=== PATIENT | female | born 1935 | race Caucasian/White ===

== ENCOUNTER 2016-10-23 18:42 | Observation (INO) ==
[2016-10-23] MEDS ORDERED: Ondansetron 4 MG/2 ML VIAL IVP ONE (19:13)
[2016-10-23] MEDS ORDERED: 0.9 % Sodium Chloride 500 ML IVC ONE (19:14)
--- NOTE | 2016-10-23 19:28 | Emergency Department Note ---
Disposition Clinical Impression: Dehydration, Elevated alkaline phosphatase level, Colitis Disposition: Admitted As Inpatient Condition: Fair Referrals: Unassigned,Provider [Non-Partnered Physician] - Forms: ED Satisfaction Letter Time of Disposition: 21:52 Nausea/Vomiting/Diarrhea HPI - General Chief complaint: ED Nausea/Vomiting/Diarrhea Stated complaint: Nausea Time Seen by Provider: 10/23/16 18:58 Source: EMS Mode of arrival: EMS Limitations: no limitations Nursing Notes Reviewed: Yes Vital Signs Reviewed: Yes - History of Present Illness HPI Narrative: Patient presents to the ED with the chief complaint of nausea. Patient states that she has had gradually increasing nausea over the last 4 weeks. She initially had accompanying cough and congestion. She saw her primary care physician and was diagnosed with an upper respiratory infection and given an antibiotic. 6. Nausea continued, as her other symptoms resolved. She saw her primary care physician again and was given Zofran for nausea. She states that it has been progressively worse over the last week. Tonight she became so nauseated that she just could not take it anymore and called EMS. She has a history of mitral valve replacement with a prosthetic valve. She is on Coumadin. Has been compliant with all her medications. She denies any fever, chills, chest pain, difficulty breathing, melena, hematochezia. She states that she feels like she needs to vomit but she cannot and states that she feels like she needs to have a bowel movement, but she cannot. No rash. - Related Data Home Medications Medication Instructions Recorded Confirmed Indacaterol Maleate [Arcapta 1 cap PO DAILY 02/01/16 08/12/16 Neohaler] Tiotropium [Spiriva] 2 cap PO DAILY 02/01/16 08/12/16 Venlafaxine HCl [Effexor Xr] 75 mg PO DAILY 02/01/16 08/12/16 Levothyroxine [Synthroid] 75 mcg PO 0630 02/02/16 08/12/16 Potassium Chloride 10 meq PO BID 02/02/16 08/12/16 Fluticasone Propionate [Flovent 100 mcg IH DAILY 03/11/16 08/12/16 Diskus] Atorvastatin Calcium [Lipitor] 20 mg PO DAILY 08/12/16 08/12/16 Esomeprazole Magnesium [Nexium] 40 mg PO DAILY 08/12/16 08/12/16 Multivitamin/Iron/Folic Acid 1 each PO DAILY 08/12/16 08/12/16 [Centrum Complete Multivit Tab] Vit D3/Folic Acid/B2/B6/B12 4,000 units PO DAILY 08/12/16 08/12/16 [Folgard Tablet] Warfarin [Coumadin] 5 mg PO 1800 08/12/16 08/12/16 Previous Rx's Medication Instructions Recorded Furosemide [Lasix] 40 mg PO DAILY 30 Days 02/04/16 Metoprolol [Lopressor] 50 mg PO BID #60 tablet 03/15/16 Allergies Allergy/AdvReac Type Severity Reaction Status Date / Time niacin AdvReac Unconscious Verified 08/12/16 14:18 All systems ED: reviewed and negative except as stated. Gastrointestinal: Reports: nausea, constipation Past Medical History - Past Medical History Attestation: Yes The following information was validated with the patient. Source: patient Medical history: Reports: arthritis, asthma, atrial fibrillation, cardiomyopathy , CHF, COPD, GERD, hyperlipidemia, hypertension, thyroid disease, valvular heart disease, other Surgical history: Reports: cholecystectomy, hysterectomy, orthopedic, other, other Psychiatric history: Reports: no psych history - Social History Smoking Status: Never smoker Smokeless Tobacco Status: No Alcohol use: Reports: none Drug use: Reports: none Physical Exam - General Limitations: no limitations General appearance: alert, other (Appears ill but nontoxic) - Head Head exam: atraumatic, normocephalic, normal inspection - Eye Eye exam: Present: normal appearance, PERRL, EOMI - ENT ENT exam: mucous membranes dry (Crack lips, tacky) - Neck Neck exam: Present: normal inspection, full ROM, trachea midline - Chest Chest inspection: Present: normal inspection, symmetric chest wall rise - Respiratory Respiratory exam: Present: normal lung sounds bilaterally - Cardiovascular Cardiovascular exam: Present: regular rate, irregular rhythm, systolic murmur - Abdominal Exam Abdominal exam: Present: soft, distention. Absent: guarding, rebound - Rectal Exam Rectal exam: Present: deferred (Patient states that she needs to have a bowel movement right now. We will collect Hemoccult) Course - Reevaluation(s) Reevaluation #1: Lab work is back. Elevated alkaline phosphatase and white blood count to count. Renal function will not allow for IV contrast, so we will CT abd/pelvis noncontrast. Reevaluation #2: CT showing some colonic inflammation. Together with the elevated alkaline phosphatase. This is concerning for malignancy. Recommending colonoscopy. Patient also has acute renal insufficiency. Will admit the patient to the hospital service for further workup. Vital Signs Temperature 98 F 10/23/16 18:50 Pulse Rate 97 10/23/16 18:50 Respiratory Rate 18 10/23/16 18:50 Blood Pressure 157/87 10/23/16 18:50 O2 Sat by Pulse Oximetry 97 10/23/16 18:50 Temperature 98 F 10/23/16 18:50 Pulse Rate 95 10/23/16 21:50 Respiratory Rate 16 10/23/16 21:50 Blood Pressure 157/98 10/23/16 21:50 O2 Sat by Pulse Oximetry 95 10/23/16 21:50 Oxygen Delivery Oxygen Delivery Room Air Nausea/Vomiting/Diarrhea - Lab Data Result diagrams: 10/23/16 20:14 10/23/16 20:14 Lab Results 10/23/16 10/23/16 10/23/16 Range/Units 19:23 20:14 20:14 WBC 16.1 H (4.3-11.1) K/mcL RBC 4.47 (3.82-4.97) M/mcL Hgb 12.1 (11.5-15.4) g/dL Hct 38.8 (35.3-44.9) % MCV 86.8 (83.0-100.0) fL MCH 27.1 L (28.0-33.3) pg MCHC 31.2 L (31.6-35.5) g/dL RDW 21.2 H (11.5-14.5) % Plt Count 152 (140-400) K/mcL MPV 12.3 (9.4-12.4) fL Immature Gran % 0.6 (0-4) % Seg Neutrophils % 88.5 % Lymphocytes % 4.5 % Monocytes % 6.1 % Eosinophils % 0.1 % Basophils % 0.2 % Neutrophils # 14.3 H (1.6-8.9) K/mcL Lymphocytes # 0.7 (0.6-4.6) K/mcL Monocytes # 1.0 (0.0-1.3) K/mcL Eosinophils # 0.0 (0.0-0.6) K/mcL Basophils # 0.0 (0.0-0.2) K/mcL PT (9.4-12.1) Seconds INR Sodium 139 (136-145) mEq/L Potassium 4.5 (3.5-4.5) mEq/L Chloride 97 L (98-109) mEq/L Carbon Dioxide 25 (19-29) mEq/L BUN 23 H (7-20) mg/dL Creatinine 1.61 H (0.57-1.11) mg/dL Est GFR ( Amer) 37 L (> 60) Est GFR (Non-Af Amer) 31 L (> 60) BUN/Creatinine Ratio 14 (6-26) Glucose 148 H (70-99) mg/dL Calculated Osmolality 294 (280-300) Calcium 9.9 (8.6-10.8) mg/dL Total Bilirubin 1.3 H (0.2-1.2) mg/dL AST 55 H (5-34) Units/L ALT 41 (0-55) Units/L Alkaline Phosphatase 185 H (38-126) Units/L Troponin I (0-0.03) ng/mL Serum Total Protein 7.3 (6.0-8.3) g/dL Albumin 4.2 (3.5-5.0) g/dL Globulin 3.1 (2.4-3.5) g/dL Albumin/Globulin Ratio 1.4 (1.1-2.2) Lipase 32 (8-78) Units/L Urine Color (Yellow) Urine Clarity (Clear) Urine pH (5.0-8.0) pH Units Ur Specific Crosby (1.010-1.025) Urine Protein (Neg-Trace) mg/dL Urine Glucose (UA) (Normal) mg/dL Urine Ketones (Negative) mg/dL Urine Blood (Negative) Urine Nitrite (Negative) Urine Bilirubin (Negative) Urine Urobilinogen (Normal) mg/dL Ur Leukocyte Esterase (Negative) Urine Microscopic RBC (0-3) per hpf Urine Microscopic WBC (0-3) per hpf Ur Squamous Epith Cells (None-Few) per lpf Urine Bacteria (None-Few) per hpf Hyaline Casts (None-Few) per lpf Ur Culture Indicated? (NO) Stool Occult Blood Negative (Negative) 10/23/16 10/23/16 10/23/16 Range/Units 20:14 20:14 21:46 WBC (4.3-11.1) K/mcL RBC (3.82-4.97) M/mcL Hgb (11.5-15.4) g/dL Hct (35.3-44.9) % MCV (83.0-100.0) fL MCH (28.0-33.3) pg MCHC (31.6-35.5) g/dL RDW (11.5-14.5) % Plt Count (140-400) K/mcL MPV (9.4-12.4) fL Immature Gran % (0-4) % Seg Neutrophils % % Lymphocytes % % Monocytes % % Eosinophils % % Basophils % % Neutrophils # (1.6-8.9) K/mcL Lymphocytes # (0.6-4.6) K/mcL Monocytes # (0.0-1.3) K/mcL Eosinophils # (0.0-0.6) K/mcL Basophils # (0.0-0.2) K/mcL PT 25.0 H (9.4-12.1) Seconds INR 2.3 Sodium (136-145) mEq/L Potassium (3.5-4.5) mEq/L Chloride (98-109) mEq/L Carbon Dioxide (19-29) mEq/L BUN (7-20) mg/dL Creatinine (0.57-1.11) mg/dL Est GFR ( Amer) (> 60) Est GFR (Non-Af Amer) (> 60) BUN/Creatinine Ratio (6-26) Glucose (70-99) mg/dL Calculated Osmolality (280-300) Calcium (8.6-10.8) mg/dL Total Bilirubin (0.2-1.2) mg/dL AST (5-34) Units/L ALT (0-55) Units/L Alkaline Phosphatase (38-126) Units/L Troponin I 0.01 (0-0.03) ng/mL Serum Total Protein (6.0-8.3) g/dL Albumin (3.5-5.0) g/dL Globulin (2.4-3.5) g/dL Albumin/Globulin Ratio (1.1-2.2) Lipase (8-78) Units/L Urine Color Yellow (Yellow) Urine Clarity Cloudy A (Clear) Urine pH 6.0 (5.0-8.0) pH Units Ur Specific Crosby 1.010 (1.010-1.025) Urine Protein Negative (Neg-Trace) mg/dL Urine Glucose (UA) Normal (Normal) mg/dL Urine Ketones Negative (Negative) mg/dL Urine Blood Negative (Negative) Urine Nitrite Negative (Negative) Urine Bilirubin Negative (Negative) Urine Urobilinogen Normal (Normal) mg/dL Ur Leukocyte Esterase Large H (Negative) Urine Microscopic RBC 0-3 (0-3) per hpf Urine Microscopic WBC 30-50 H (0-3) per hpf Ur Squamous Epith Cells Many H (None-Few) per lpf Urine Bacteria None Seen (None-Few) per hpf Hyaline Casts None Seen (None-Few) per lpf Ur Culture Indicated? YES A (NO) Stool Occult Blood (Negative) Attestation Statement - Attestation Attestation: I, Stepan Llamas MD, personally performed a history and physical exam of the patient and discussed their management with the resident. I reviewed the resident's note and agree with the documented findings, medical decision making , and plan of care. 81-year-old female presents to the emergency department with a complaint of nausea which started about 4-6 weeks ago and seems to just be getting gradually worse all the time. She denies any pain. Her abdomen does feel a little bloated and swollen. No vomiting or diarrhea. No melena, hematemesis, or hematochezia. No fever. No urinary symptoms. Decreased oral intake due to the nausea. Some generalized weakness. She has been seen by her PCP and states that she had a scan of her liver about 10 days ago which did not show anything. She has had some problems with her liver enzymes being elevated in the past. On examination patient is a well-developed well-nourished elderly female in no acute distress. She is alert and oriented 3. There is no cyanosis or diaphoresis. Breath sounds are clear and equal bilaterally. Heart regular rate and rhythm. Abdomen is soft and nontender with normal bowel sounds. Labs reviewed. WBC 16 with 88% segs. Creatinine 1.61 which is increased from baseline. Total bilirubin 1.3. Elevated AST and alkaline phosphatase. CT of the abdomen and pelvis without contrast obtained and shows a focal area of circumferential wall thickening of the descending colon with some surrounding stranding concerning for a focal colitis or possible malignancy. The hospitalist, Dr. Carey, was consulted and accepted admission of the patient.
[2016-10-23 20:18] LABS: Basophils % 0.2 %; Eosinophils % 0.1 %; Hematocrit 38.8 % (35.3-44.9); Hemoglobin 12.1 g/dL (11.5-15.4); Immature Granulocytes % 0.6 % (0-4); Lymphocytes # 0.7 K/mcL (0.6-4.6); Lymphocytes % 4.5 %; Mean Corpuscular HGB Conc 31.2 g/dL (31.6-35.5); Mean Corpuscular Hemoglobin 27.1 pg (28.0-33.3); Mean Corpuscular Volume 86.8 fL (83.0-100.0); Mean Platelet Volume 12.3 fL (9.4-12.4); Monocytes % 6.1 %; Neutrophils # 14.3 K/mcL (1.6-8.9); Platelet Count 152 K/mcL (140-400); Red Blood Count 4.47 M/mcL (3.82-4.97); Red Cell Distribution Width 21.2 % (11.5-14.5); Segmented Neutrophils % 88.5 %
[2016-10-23 20:23] LABS: INR 2.3
[2016-10-23 20:32] LABS: Albumin 4.2 g/dL (3.5-5.0); Albumin/Globulin Ratio 1.4 (1.1-2.2); Bilirubin,Total 1.3 mg/dL (0.2-1.2); Calcium 9.9 mg/dL (8.6-10.8); Globulin 3.1 g/dL (2.4-3.5); Potassium 4.5 mEq/L (3.5-4.5); Total Protein 7.3 g/dL (6.0-8.3)
[2016-10-23 22:06] LABS: Bilirubin,Urine Negative (Negative); Blood,Urine Negative (Negative); Clarity,Urine Cloudy (Clear); Color,Urine Yellow (Yellow); Glucose,Urine (UA) Normal (Normal); Ketones,Urine Negative (Negative); Leukocyte Esterase,Urine Large (Negative); Nitrite,Urine Negative (Negative); Protein,Urine Negative (Neg-Trace); Urobilinogen,Urine Normal (Normal)
[2016-10-23 22:08] LABS: Bacteria,Urine None Seen per hpf (None-Few); Hyaline Casts,Urine None Seen per lpf (None-Few); RBC,Urine 0-3 per hpf (0-3); Squamous Epithelial Cell,Urine Many per lpf (None-Few); WBC,Urine 30-50 per hpf (0-3)
[2016-10-24] MEDS ORDERED: *HR* LORazepam 0.5 MG TABLET PO PRN (01:05)
[2016-10-24] MEDS ORDERED: *HR* LORazepam 2 MG/ML VIAL IVP STA (01:05)
[2016-10-24] MEDS ORDERED: Benzonatate 100 MG CAPSULE PO PRN (01:05)
--- NOTE | 2016-10-24 01:18 | Internal Med History&Physical ---
Date of Encounter: 10/24/16 Time of Encounter: 01:00 Assessment and Plan (1) Intractable nausea and vomiting Current visit: Yes Status: Acute . Qualifiers: Vomiting type: cyclical vomiting Qualified Code(s): G43.A1 - Cyclical vomiting, intractable (2) Upper respiratory infection with cough and congestion Current visit: Yes Status: Acute . (3) Acute generalized abdominal pain Current visit: Yes Status: Acute . (4) EDIL (acute kidney injury) Current visit: Yes Status: Acute . (5) Transaminitis Current visit: Yes Status: Acute . (6) UTI (urinary tract infection) Current visit: Yes Status: Acute . Qualifiers: Urinary tract infection type: acute cystitis Hematuria presence: without hematuria Qualified Code(s): N30.00 - Acute cystitis without hematuria (7) Ischemic colitis, enteritis, or enterocolitis Current visit: Yes Status: Acute . (8) Paroxysmal atrial fibrillation Current visit: Yes Status: Chronic . (9) Chronic anticoagulation Current visit: Yes Status: Chronic . (10) Dyslipidemia Current visit: Yes Status: Chronic . (11) Systemic inflammatory response syndrome Current visit: Yes Status: Acute . (12) Hypertension Current visit: Yes Status: Chronic . Qualifiers: Hypertension type: essential hypertension Qualified Code(s): I10 - Essential (primary) hypertension (13) Chronic diastolic (congestive) heart failure Current visit: Yes Status: Chronic . (14) Hypothyroidism Current visit: Yes Status: Chronic . Qualifiers: Hypothyroidism type: unspecified Qualified Code(s): E03.9 - Hypothyroidism , unspecified (15) Thrombus of left atrial appendage Current visit: Yes Status: Chronic . (16) Sepsis Current visit: Yes Status: Acute . Qualifiers: Sepsis type: sepsis due to unspecified organism Qualified Code(s): A41.9 - Sepsis, unspecified organism Internal Medicine - H&P: HPI Chief complaint: Nausea vomiting diarrhea and abdominal pain Admitted From: Emergency Dept Plans for Post Hospital Care: Home History of present illness: Ms. Lee is a 81 year old female with significant medical history of valvular heart disease/prosthetic mitral valve replacement, chronic paroxysmal atrial fibrillation/AV albert ablation for AVNRT, CAD/AMI/diastCHF, COPD, RAD/ asthma, hypertension, dyslipidemia, GERD, chronic anticoagulation, osteoarthritis, osteoporosis, hypothyroidism, nonsmoker. Patient is admitted to [facility] via the emergency department when she presented by EMS services from home with complaints of intractable nausea / vomiting with intermittent abdominal pain and diarrheal/loose stools. She denies hematemesis melena or bright red blood per rectum hemoptysis epistaxis. Symptoms have been progressive for approximately 6 weeks worse in the last 3-4 weeks. This followed an initial episode of upper respiratory tract infection with cough and postnasal drainage and head/chest congestion. No PCP treated her with a course of antibiotic therapy for a URI diagnosis. Nausea she however continued as her other symptoms seem to resolve. Because of this she saw her PCP again and was placed on oral Zofran. In spite of this treatment addition her symptoms progressively worsened over the last week and were still within the last few days. Because of this she was unable to maintain stable predictable oral intakes of solids or liquids. For the most part compliant with her home medications as prescribed including her Coumadin. She denied any overt feverishness or chills or sweats chest pain or difficulty breathing orthopnea PND edema. At the day of presentation to the ED continues to feel nauseated with a feeling of need to vomit but cannot as well as a feeling of need to have a bowel movement but cannot. Findings in the ED: Vital signs. Afebrile. WBC 16.1 hemoglobin 12.1 platelets 152,000. RDW 21.2. Differential shows increase in neutrophils. Comprehensive metabolic panel normal except chloride 97. BUN 23 creatinine 1.61. GFR 31. Glucose 148. Osmolality 294. Total bilirubin 1.3. AST 55. Alkaline phosphatase 185. Lipase 32. PTT 25 INR 2.3. Troponin 0.01. Urinalysis shows large leukocyte esterase. 5 RBC. 50 WBC. Epithelial cells, many. CT abdomen and pelvis demonstrated circumferential wall thickening involving a segment of the descending colon. This may be due to colitis was concerning for malignancy. Follow-up recommended. Findings suggestive of diffuse periportal edema, nonspecific although hepatitis may be a consideration. Sigmoid diverticulosis without diverticulitis. No evidence of bowel obstruction. Small hiatal hernia. No free air or free fluid or abscess identified. No acute bony abnormalities. Preliminary impressions suggest sepsis/SIRS present at admission, multifactorial. Radiographic findings suggest evidence for distal colonic enteritis-colitis unspecified. Malignancy however is not ruled out. Further assessment will be required. Urinalysis/urinary sediment suggestive of UTI. She has a prominent history of chronic recurrent infections due to problematic bladder syndrome with alternating urinary retention and urge incontinence. Metabolic and acid-base deficits are noted. AK I/CK D stage III noted. The patient is at risk for further acute clinical decline and morbidity given her advanced age, presenting chief complaints/findings and comorbid conditions. Workup and treatment progress comprehensively. Plan of care has been discussed. Questions addressed. Cumulative laboratory and radiographic database was reviewed and considered. Consultative opinions will be sought as clinical circumstances justify. Given the patient's presenting concerns, past medical history, clinical findings and symptoms, she is admitted at this time to undergo further evaluation and disposition. Hospital course will be dependent upon clinical findings, treatment response and potential consultative interventions. Orders were written as per the computerized physician order intravenous system. Condition serious. Prognosis guarded. CODE STATUS as per patient consideration. Past Med Surg Social Fam HX - Past Medical History Source: old records reviewed Medical history: arthritis, asthma, atrial fibrillation, cardiomyopathy, CHF, COPD, coronary artery disease, GERD, hyperlipidemia, hypertension, kidney stones , myocardial infarction, osteoporosis, renal disease, thyroid disease, valvular heart disease, other Psychiatric history: anxiety, depression - Past Surgical History Surgical History: breast surgery, cholecystectomy, hysterectomy, orthopedic, other, other (Thorascopic maze procedure with extended ablation. Intraoperative mapping. Ligation of left atrial appendage. Indication atrial fibrillation. EP study. Ablation of AVNRT performed.) - Social History Smoking Status: Never smoker Smokeless Tobacco Status: No Alcohol use: none Drug use: none Occupational status: retired Current living situation: Home, With Family Activity Level: Independent ambulation, Mostly sedentary Recent Out of Country Travel Within the Last 8 Weeks: No Exposure or Possible Exposure to Illness During Travel: No - Family History Mother Living Status: Hx Family Cardiac Disorders: Yes Hx Family Respiratory Disorders: No Hx Family Cancer: Yes (Breast) Hx Family GI Disorders: No Hx Family Endocrine Disorder: No Hx Family Neuromuscular Disorders: No Hx Family Neurologic Disorders: No Hx Family HEENT Disorders: No Hx Family Autoimmune Disorders: No Father Living Status: Hx Family Cardiac Disorders: Yes (self) Hx Family Respiratory Disorders: Yes (self) Hx Family Cancer: Yes (mother,brother,aunt) Hx Family GI Disorders: No Hx Family Endocrine Disorder: No Hx Family Neuromuscular Disorders: No Hx Family Neurologic Disorders: Yes (grandparents) Hx Family HEENT Disorders: No Hx Family Autoimmune Disorders: No Internal Medicine - H&P: Meds Indacaterol Maleate [Arcapta Neohaler] 75 mcg IH DAILY 02/01/16 [History] Tiotropium [Spiriva] 18 mcg IH DAILY 02/01/16 [History] Venlafaxine HCl [Effexor Xr] 75 mg PO DAILY 02/01/16 [History] Potassium Chloride 20 meq PO BID 02/02/16 [History] Furosemide [Lasix] 40 mg PO DAILY 30 Days 02/04/16 [Rx] Fluticasone Propionate [Flovent Diskus] 1 puff IH DAILY 03/11/16 [History] Atorvastatin Calcium [Lipitor] 20 mg PO HS 08/12/16 [History] Esomeprazole Magnesium [Nexium] 40 mg PO DAILY 08/12/16 [History] Multivitamin/Iron/Folic Acid [Centrum Complete Multivit Tab] 1 each PO DAILY [History] Aspirin Enteric Coated [Aspirin EC] 81 mg PO DAILY 10/23/16 [History] Cholecalciferol (Vitamin D3) [Vitamin D3] 4,000 unit PO DAILY 10/23/16 [History] Levothyroxine Sodium 100 mcg PO QAM 10/23/16 [History] Metoprolol [Lopressor] 100 mg PO BID 10/23/16 [History] Ondansetron [Zofran ODT] 8 mg SL Q8H PRN 10/23/16 [History] Warfarin [Coumadin] 4 mg PO 1800 10/23/16 [History] Allergies niacin Adverse Reaction (Verified 08/12/16 14:18) Unconscious All Systems PM: A 10-system review of systems was performed and is negative for pertinent findings except as documented above in the HPI. - Constitutional Constitutional: as per HPI, fatigue, malaise, other, no chills, no fever(s), no night sweats - EENT Eyes: as per HPI, no change in vision, no discharge, no pain, no photophobia Ears: as per HPI, no ear discharge, no ear pain, no tinnitus Nose, mouth and throat: as per HPI, nasal congestion, post-nasal drip, other, no dysphagia, no epistaxis, no nasal discharge, no neck pain, no sore throat - Cardiovascular Cardiovascular ROS IM: as per HPI, lightheadedness, other, no chest pain, no diaphoresis, no dyspnea, no palpitations, no syncope - Respiratory Respiratory: as per HPI, cough, chest congestion, other, no dyspnea, no hemoptysis, no wheezing, no excessive phlegm production - Gastrointestinal Gastrointestinal: as per HPI, abdominal pain, bloating, change in bowel habits, change in stool character, cramping, diarrhea, early satiety, loose stools, nausea, vomiting, other, no coffee ground emesis, no fecal incontinence, no hematemesis, no hematochezia, no melena - Genitourinary Genitourinary: as per HPI, other, no change in urinary stream, no dysuria, no flank pain, no hematuria - Musculoskeletal Musculoskeletal ROS IM: as per HPI, no numbness, no tingling - Integumentary Integumentary IM: as per HPI, no rash, no unusual bruising - Neurological Neurological ROS: as per HPI, no confusion, no convulsions, no focal weakness, no numbness, no tingling, no tremor(s) - Psychiatric Psychiatric: as per HPI - Endocrine Endocrine IM: as per HPI - Hematologic/Lymphatic Hematologic/Lymphatic: as per HPI, no easy bruising - Allergic/Immunologic Allergic/Immunologic: as per HPI - Constitutional Vitals: Temp Pulse Resp BP Pulse Ox 97.7 F 114 18 140/98 94 10/24/16 00:35 10/24/16 00:35 10/24/16 00:35 10/24/16 00:35 10/24/16 00:35 Vital Signs Temp Pulse Resp BP Pulse Ox 10/24/16 00:35 97.7 F 114 18 140/98 94 10/23/16 22:47 16 153/92 10/23/16 21:50 95 16 157/98 95 10/23/16 20:25 104 16 144/79 95 10/23/16 19:29 97 18 157/87 97 10/23/16 18:50 98 F 97 18 157/87 97 Intake and Output 10/23/16 10/23/16 10/24/16 15:59 23:59 07:59 Intake Total 500 / 500 Balance 500 / 500 Intake: IV Fluids 500 / 500 0.9 % Sodium Chloride 500 500 / 500 ML @ 1875 mls/hr IVC . Q16M ONE Rx#:[id number] Other: Stool Characteristics Normal for Patient Stool Color Brown Weight 63.957 kg 64 kg Patient Weight 10/24/16 23:59 Weight 64 kg General appearance: Present: mild distress, A&O X 3, answers questions appropriately - Head Head exam: Present: atraumatic, normocephalic - Eye Eye exam: Present: EOMI, PERRL, conjuntiva pink, sclera anicteric Pupils: Present: normal accommodation, PERRL - ENT ENT exam: Present: mucous membranes dry, normal external ear exam, normal oropharynx - Neck Neck exam general surgery: Present: supple, trachea midline. Absent: lymphadenopathy - Respiratory Respiratory exam: Present: decreased breath sounds. Absent: accessory muscle use, CTAB, rales, rhonchi, stridor, wheezes - Cardiovascular Cardiovascular exam: Present: distant heart sounds, irregular rhythm, +S1, +S2, tachycardia. Absent: diastolic murmur, gallop, rubs, systolic murmur - GI/Abdominal GI/Abdominal exam: Present: distended, normal bowel sounds, soft, tenderness, no peritoneal signs. Absent: guarding, rebound - Extremities Exam Extremities exam: Present: warm, radial pulses palpable and symetrical. Absent : calf tenderness, cyanotic, pedal edema - Neurological Exam Neurological exam: Present: alert, altered, CN II-XII intact, oriented X3, no focal deficits. Absent: pronater drift, facial droop, speech deficit - Psychiatric Psychiatric exam: Present: normal affect, normal mood - Skin Skin exam: Present: dry, intact, warm. Absent: petechiae, rash, urticaria, vesicles Internal Med - H&P Results - Labs CBC & Chem 7: 10/23/16 20:14 10/23/16 20:14 Labs: Short CBC 10/23/16 Range/Units 20:14 WBC 16.1 H (4.3-11.1) K/mcL Hgb 12.1 (11.5-15.4) g/dL Hct 38.8 (35.3-44.9) % Plt Count 152 (140-400) K/mcL Neutrophils # 14.3 H (1.6-8.9) K/mcL BMP 10/23/16 Range/Units 20:14 Sodium 139 (136-145) mEq/L Potassium 4.5 (3.5-4.5) mEq/L Chloride 97 L (98-109) mEq/L Carbon Dioxide 25 (19-29) mEq/L BUN 23 H (7-20) mg/dL Creatinine 1.61 H (0.57-1.11) mg/dL Glucose 148 H (70-99) mg/dL Calcium 9.9 (8.6-10.8) mg/dL Cardiac Enzymes 10/23/16 Range/Units 20:14 Troponin I 0.01 (0-0.03) ng/mL Liver Function 10/23/16 Range/Units 20:14 Total Bilirubin 1.3 H (0.2-1.2) mg/dL AST 55 H (5-34) Units/L ALT 41 (0-55) Units/L Alkaline Phosphatase 185 H (38-126) Units/L Albumin 4.2 (3.5-5.0) g/dL Urine 10/23/16 Range/Units 21:46 Urine Color Yellow (Yellow) Urine Clarity Cloudy A (Clear) Urine pH 6.0 (5.0-8.0) pH Units Ur Specific [place] 1.010 (1.010-1.025) Urine Protein Negative (Neg-Trace) mg/dL Urine Glucose (UA) Normal (Normal) mg/dL Abnormal lab results WBC 16.1 K/mcL (4.3-11.1) H 10/23/16 20:14 MCH 27.1 pg (28.0-33.3) L 10/23/16 20:14 MCHC 31.2 g/dL (31.6-35.5) L 10/23/16 20:14 RDW 21.2 % (11.5-14.5) H 10/23/16 20:14 Neutrophils # 14.3 K/mcL (1.6-8.9) H 10/23/16 20:14 PT 25.0 Seconds (9.4-12.1) H 10/23/16 20:14 Chloride 97 mEq/L (98-109) L 10/23/16 20:14 BUN 23 mg/dL (7-20) H 10/23/16 20:14 Creatinine 1.61 mg/dL (0.57-1.11) H 10/23/16 20:14 Est GFR ( Amer) 37 (> 60) L 10/23/16 20:14 Est GFR (Non-Af Amer) 31 (> 60) L 10/23/16 20:14 Glucose 148 mg/dL (70-99) H 10/23/16 20:14 Total Bilirubin 1.3 mg/dL (0.2-1.2) H 10/23/16 20:14 AST 55 Units/L (5-34) H 10/23/16 20:14 Alkaline Phosphatase 185 Units/L (38-126) H 10/23/16 20:14 Urine Clarity Cloudy (Clear) A 10/23/16 21:46 Ur Leukocyte Esterase Large (Negative) H 10/23/16 21:46 Urine Microscopic WBC 30-50 per hpf (0-3) H 10/23/16 21:46 Ur Squamous Epith Cells Many per lpf (None-Few) H 10/23/16 21:46 Ur Culture Indicated? YES (NO) A 10/23/16 21:46 Laboratory Results WBC 16.1 K/mcL (4.3-11.1) H 10/23/16 20:14 RBC 4.47 M/mcL (3.82-4.97) 10/23/16 20:14 Hgb 12.1 g/dL (11.5-15.4) 10/23/16 20:14 Hct 38.8 % (35.3-44.9) 10/23/16 20:14 MCV 86.8 fL (83.0-100.0) 10/23/16 20:14 MCH 27.1 pg (28.0-33.3) L 10/23/16 20:14 MCHC 31.2 g/dL (31.6-35.5) L 10/23/16 20:14 RDW 21.2 % (11.5-14.5) H 10/23/16 20:14 Plt Count 152 K/mcL (140-400) 10/23/16 20:14 MPV 12.3 fL (9.4-12.4) 10/23/16 20:14 Immature Gran % 0.6 % (0-4) 10/23/16 20:14 Seg Neutrophils % 88.5 % 10/23/16 20:14 Lymphocytes % 4.5 % 10/23/16 20:14 Monocytes % 6.1 % 10/23/16 20:14 Eosinophils % 0.1 % 10/23/16 20:14 Basophils % 0.2 % 10/23/16 20:14 Neutrophils # 14.3 K/mcL (1.6-8.9) H 10/23/16 20:14 Lymphocytes # 0.7 K/mcL (0.6-4.6) 10/23/16 20:14 Monocytes # 1.0 K/mcL (0.0-1.3) 10/23/16 20:14 Eosinophils # 0.0 K/mcL (0.0-0.6) 10/23/16 20:14 Basophils # 0.0 K/mcL (0.0-0.2) 10/23/16 20:14 PT 25.0 Seconds (9.4-12.1) H 10/23/16 20:14 INR 2.3 10/23/16 20:14 Sodium 139 mEq/L (136-145) 10/23/16 20:14 Potassium 4.5 mEq/L (3.5-4.5) 10/23/16 20:14 Chloride 97 mEq/L (98-109) L 10/23/16 20:14 Carbon Dioxide 25 mEq/L (19-29) 10/23/16 20:14 BUN 23 mg/dL (7-20) H 10/23/16 20:14 Creatinine 1.61 mg/dL (0.57-1.11) H 10/23/16 20:14 Est GFR ( Amer) 37 (> 60) L 10/23/16 20:14 Est GFR (Non-Af Amer) 31 (> 60) L 10/23/16 20:14 BUN/Creatinine Ratio 14 (6-26) 10/23/16 20:14 Glucose 148 mg/dL (70-99) H 10/23/16 20:14 Calculated Osmolality 294 (280-300) 10/23/16 20:14 Calcium 9.9 mg/dL (8.6-10.8) 10/23/16 20:14 Total Bilirubin 1.3 mg/dL (0.2-1.2) H 10/23/16 20:14 AST 55 Units/L (5-34) H 10/23/16 20:14 ALT 41 Units/L (0-55) 10/23/16 20:14 Alkaline Phosphatase 185 Units/L (38-126) H 10/23/16 20:14 Troponin I 0.01 ng/mL (0-0.03) 10/23/16 20:14 Serum Total Protein 7.3 g/dL (6.0-8.3) 10/23/16 20:14 Albumin 4.2 g/dL (3.5-5.0) 10/23/16 20:14 Globulin 3.1 g/dL (2.4-3.5) 10/23/16 20:14 Albumin/Globulin Ratio 1.4 (1.1-2.2) 10/23/16 20:14 Lipase 32 Units/L (8-78) 10/23/16 20:14 Urine Color Yellow (Yellow) 10/23/16 21:46 Urine Clarity Cloudy (Clear) A 10/23/16 21:46 Urine pH 6.0 pH Units (5.0-8.0) 10/23/16 21:46 Ur Specific [place] 1.010 (1.010-1.025) 10/23/16 21:46 Urine Protein Negative mg/dL (Neg-Trace) 10/23/16 21:46 Urine Glucose (UA) Normal mg/dL (Normal) 10/23/16 21:46 Urine Ketones Negative mg/dL (Negative) 10/23/16 21:46 Urine Blood Negative (Negative) 10/23/16 21:46 Urine Nitrite Negative (Negative) 10/23/16 21:46 Urine Bilirubin Negative (Negative) 10/23/16 21:46 Urine Urobilinogen Normal mg/dL (Normal) 10/23/16 21:46 Ur Leukocyte Esterase Large (Negative) H 10/23/16 21:46 Urine Microscopic RBC 0-3 per hpf (0-3) 10/23/16 21:46 Urine Microscopic WBC 30-50 per hpf (0-3) H 10/23/16 21:46 Ur Squamous Epith Cells Many per lpf (None-Few) H 10/23/16 21:46 Urine Bacteria None Seen per hpf (None-Few) 10/23/16 21:46 Hyaline Casts None Seen per lpf (None-Few) 10/23/16 21:46 Ur Culture Indicated? YES (NO) A 10/23/16 21:46 Stool Occult Blood Negative (Negative) 10/23/16 19:23 Impressions Abdomen/Pelvis CT 10/23/16 20:53 IMPRESSION: Circumferential wall thickening involving a segment of the descending colon which may be due to focal colitis but is concerning for malignancy. Follow-up to ensure resolution is needed. Consider colonoscopy. Findings suggestive of diffuse periportal edema, nonspecific although hepatitis is a primary consideration with the provided history. D/ / Ion Juárez MD / Ion Juárez MD Interpreting Provider: Ion Juárez MD
[2016-10-24] MEDS ORDERED: Albuterol 2.5 MG/3 ML NEBULIZER IH PRN (01:23)
[2016-10-24] MEDS: Melatonin 3 MG TABLET PO SCH ×2 (01:54→21:45)
[2016-10-24] MEDS: Ipratropium/Albuterol Neb 3 ML IH SCH ×4 (04:39→22:37)
[2016-10-24 05:30] LABS: VBG HCO3 32.5 mEq/L (21-27); VBG PH 7.43 pH Units (7.32-7.42)
[2016-10-24 05:39] LABS: Ionized Calcium 1.11 mmol/L (1.15-1.35)
[2016-10-24] MEDS ORDERED: 0.9 % Sodium Chloride 500 ML IVC ONE (05:40)
[2016-10-24] MEDS ORDERED: *HR* LORazepam 2 MG/ML VIAL IVP ONE (06:00)
[2016-10-24 06:21] LABS: Hemoglobin A1C 6.2 %
[2016-10-24] MEDS: MetroNIDAZOLE 500 MG/100 ML 500 MG/100 ML BAG IVPB SCH ×3 (07:43→23:46)
--- NOTE | 2016-10-24 07:59 | Electrocardiograph Report ---
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
[2016-10-24] MEDS: Metoprolol 100 MG TABLET PO SCH ×2 (09:12→21:45)
[2016-10-24] MEDS: Aspirin Enteric Coated 81 MG Tablet PO SCH (09:12)
[2016-10-24] MEDS: Venlafaxine XR (24 HR) 75 MG CAP.ER.24H PO SCH (09:12)
[2016-10-24] MEDS: Beclomethasone 80mcg MDI IH SCH ×2 (10:22→22:37)
[2016-10-24 10:54] LABS: Hepatitis A Antibody IgM Nonreactive (Nonreactive); Hepatitis B Core IgM Nonreactive (Nonreactive); Hepatitis B Surface Antigen Nonreactive (Nonreactive); Hepatitis C Virus Antibody Nonreactive (Nonreactive)
--- NOTE | 2016-10-24 11:35 | Internal Med Progress Note ---
<Michele Quezada - Last Filed: 10/24/16 14:30> Date of Encounter: 10/24/16 Time of Encounter: 08:00 - Assessment and plan (1) Colitis Current Visit: Yes Status: Acute Assessment and plan: Mrs. Lee presented with abdominal tenderness and nausea for several weeks. CT of the abdomen demonstrated descending colon colitis. Patient denies diarrhea, blood in her stools or mucousy stools. She has had a little bit of constipation which she has been using MiraLAX. - CT scan demonstrated colitis but there is also concerned that there may be malignancy and patient should undergo colonoscopy which can be completed with outpatient follow-up (gastroenterology )and therapy. Plan: -Continue IV Flagyl and Cipro with plans to switch to by mouth Flagyl at time of discharge. - Continue bowel regimen. - Clear liquids with transition diet. (2) Impetigo Current Visit: Yes Status: Acute Assessment and plan: Patient had recent lesion biopsy of the right cheek now demonstrate signs of infection. Plan: - Topical mupirocin 3 times a day. (3) Atrial fibrillation Current Visit: No Status: Acute Assessment and plan: History of atrial fibrillation. Plan: - Continue rate control at beta martha - Continue aspirin 81 mg by mouth daily Qualifiers: Atrial fibrillation type: persistent Qualified Code(s): I48.1 - Persistent atrial fibrillation (4) DVT prophylaxis Current Visit: No Status: Acute Assessment and plan: SCDs - Subjective Interval history: Mrs. Lee 81-year-old female has been seen the patient bedside this morning. She is awake alert and in no acute distress. She said that she had nausea which was severe for 3-6 weeks intensified yesterday prior to calling the squad. She has also had abdominal tenderness in her lower left and he will quadrant more so to touch. She has had a loss of appetite for several weeks but denies any vomiting diarrhea. She has had constipation is been using laxatives including MiraLAX at home. She had a spot of blood that she noticed while wiping earlier this week and follow up with her primary care provider. Currently she denies any nausea or vomiting, diarrhea or constipation. She feels pretty good. She actually has an appetite which he said his abnormal she says. Regarding the swelling on her right maxilla, she said she had a skin lesion removed earlier this week but has had increase in swelling and drainage.. - Constitutional Vitals: Temp Pulse Resp BP Pulse Ox 97.6 F 114 16 121/71 95 10/24/16 10:43 10/24/16 10:43 10/24/16 10:43 10/24/16 10:43 10/24/16 10:43 General appearance: Present: mild distress, A&O X 3, answers questions appropriately - Head Head exam: Present: atraumatic, normocephalic Additional comments: Patient has erythema and mild edema with yellow crusted lesion on the right cheek. - Eye Eye exam: Present: PERRL, conjuntiva pink, sclera anicteric Pupils: Present: PERRL - ENT ENT exam: Present: mucous membranes moist - Neck Neck exam general surgery: Present: supple, trachea midline. Absent: lymphadenopathy - Respiratory Respiratory exam: Present: CTAB. Absent: accessory muscle use, rales, rhonchi, wheezes - Cardiovascular Cardiovascular exam: Present: RRR, +S1, +S2. Absent: diastolic murmur, gallop, rubs, systolic murmur - GI/Abdominal GI/Abdominal exam: Present: normal bowel sounds, soft, no peritoneal signs. Absent: distended, tenderness - Extremities Exam Extremities exam: Present: warm, radial pulses palpable and symetrical. Absent : calf tenderness, cyanotic, pedal edema - Neurological Exam Neurological exam: Present: alert, oriented X3, no focal deficits. Absent: pronater drift, facial droop, speech deficit - Psychiatric Psychiatric exam: Present: normal affect, normal mood Internal Medicine: Result - Labs CBC & Chem 7: 10/23/16 20:14 10/23/16 20:14 - ABG Interpretation ABG results: PT/INR, D-dimer PT 25.0 Seconds (9.4-12.1) H 10/23/16 20:14 Consult Discharge Plan - Plan Referrals: Darby Pete, INSURANCE APPLICATION INVESTIGATOR [Primary Care Provider] - <Kang Moon - Last Filed: 10/24/16 18:08> Date of Encounter: 10/24/16 - Constitutional Vitals: Temp Pulse Resp BP Pulse Ox 98 F 89 18 105/67 95 10/24/16 15:40 10/24/16 15:40 10/24/16 15:45 10/24/16 15:40 10/24/16 15:45 Internal Medicine: Result - Labs CBC & Chem 7: 10/23/16 20:14 10/23/16 20:14 - ABG Interpretation ABG results: PT/INR, D-dimer PT 25.0 Seconds (9.4-12.1) H 10/23/16 20:14 - Attending Attestation I examined this patient and my medical decision-making was reviewed with the FISHER TRAMMEL NET/PA/Advanced Practice Nurse/Resident Physician. I agree with the documented findings, disposition and treatment plan as described except to the extent set forth below. Continue with iv antibiotics. D/W patient. Advance diet.
[2016-10-24] MEDS ORDERED: *HR* Warfarin 3 MG TABLET PO ONE (18:00)
[2016-10-24] MEDS ORDERED: Warfarin perPT PO PRN (18:00)
[2016-10-24] MEDS ORDERED: *HR* Warfarin 4 MG TABLET PO SCH (18:00)
[2016-10-25] MEDS: Ipratropium/Albuterol Neb 3 ML IH SCH ×3 (04:06→15:29)
[2016-10-25 05:55] LABS: INR 1.8; Prothrombin Time 19.7 Seconds (9.4-12.1)
[2016-10-25 05:59] LABS: Hematocrit 32.9 % (35.3-44.9); Hemoglobin 10.2 g/dL (11.5-15.4); Mean Corpuscular Hemoglobin 26.8 pg (28.0-33.3); Mean Corpuscular Volume 86.6 fL (83.0-100.0); Mean Platelet Volume 12.7 fL (9.4-12.4); Red Blood Count 3.8 M/mcL (3.82-4.97); Red Cell Distribution Width 21.3 % (11.5-14.5)
[2016-10-25 06:04] LABS: BUN/Creatinine Ratio 16 (6-26); Blood Urea Nitrogen 14 mg/dL (7-20); Carbon Dioxide 27 mEq/L (19-29); Chloride 102 mEq/L (98-109); Glucose 179 mg/dL (70-99); Osmolality,Calculated 289 (280-300); Potassium 3.7 mEq/L (3.5-4.5); Sodium 137 mEq/L (136-145); eGFR For African Americans > 60 (> 60); eGFR For Non-African Americans > 60 (> 60)
[2016-10-25 06:06] LABS: Calcium 8.4 mg/dL (8.6-10.8)
[2016-10-25] MEDS: MetroNIDAZOLE 500 MG/100 ML 500 MG/100 ML BAG IVPB SCH ×2 (07:35→15:19)
[2016-10-25] MEDS: Aspirin Enteric Coated 81 MG Tablet PO SCH (07:40)
[2016-10-25] MEDS: Venlafaxine XR (24 HR) 75 MG CAP.ER.24H PO SCH (07:40)
[2016-10-25] MEDS: Metoprolol 100 MG TABLET PO SCH (07:40)
[2016-10-25] MEDS: Beclomethasone 80mcg MDI IH SCH (10:56)
[2016-10-25 12:09] VITALS: BP 134/84
--- NOTE | 2016-10-25 15:25 | Discharge Summary ---
<Nishant Cortez - Last Filed: 10/25/16 15:22> Date of Encounter: 10/25/16 Time of Encounter: 15:23 - Discharge Diagnosis (1) Colitis Status: Acute (2) Impetigo Status: Acute (3) Atrial fibrillation Status: Acute (4) H/O aortic valve replacement with porcine valve Status: Acute - Discharge Medications Prescriptions: Ondansetron ODT [Zofran ODT] 4 mg SL Q8HR PRN #30 tab.rapdis PRN Reason: Nausea Ciprofloxacin [Cipro] 500 mg PO BID 8 Days Docusate [Colace] 100 mg PO DAILY 30 Days MetroNIDAZOLE [Flagyl] 500 mg PO TID 8 Days Mupirocin [Bactroban Oint] 1 appl TP BID 7 Days Sennosides [Senna] 8.6 mg PO DAILY #30 tablet Home Medications: Indacaterol Maleate [Arcapta Neohaler] 75 mcg IH DAILY 02/01/16 [History] Tiotropium [Spiriva] 18 mcg IH DAILY 02/01/16 [History] Venlafaxine HCl [Effexor Xr] 75 mg PO DAILY 02/01/16 [History] Potassium Chloride 20 meq PO BID 02/02/16 [History] Furosemide [Lasix] 40 mg PO DAILY 30 Days 02/04/16 [Rx] Fluticasone Propionate [Flovent Diskus] 1 puff IH DAILY 03/11/16 [History] Atorvastatin Calcium [Lipitor] 20 mg PO HS 08/12/16 [History] Esomeprazole Magnesium [Nexium] 40 mg PO DAILY 08/12/16 [History] Multivitamin/Iron/Folic Acid [Centrum Complete Multivit Tab] 1 each PO DAILY [History] Aspirin Enteric Coated [Aspirin EC] 81 mg PO DAILY 10/23/16 [History] Cholecalciferol (Vitamin D3) [Vitamin D3] 4,000 unit PO DAILY 10/23/16 [History] Levothyroxine Sodium 100 mcg PO QAM 10/23/16 [History] Metoprolol [Lopressor] 100 mg PO BID 10/23/16 [History] Ondansetron [Zofran ODT] 8 mg SL Q8H PRN 10/23/16 [History] Warfarin [Coumadin] 4 mg PO 1800 10/23/16 [History] Ciprofloxacin [Cipro] 500 mg PO BID 8 Days 10/25/16 [Rx] Docusate [Colace] 100 mg PO DAILY 30 Days 10/25/16 [Rx] MetroNIDAZOLE [Flagyl] 500 mg PO TID 8 Days 10/25/16 [Rx] Mupirocin [Bactroban Oint] 1 appl TP BID 7 Days 10/25/16 [Rx] Ondansetron ODT [Zofran ODT] 4 mg SL Q8HR PRN #30 tab.rapdis 10/25/16 [Rx] Sennosides [Senna] 8.6 mg PO DAILY #30 tablet 10/25/16 [Rx] Allergies/Adverse Reactions: Allergies niacin Adverse Reaction (Verified 08/12/16 14:18) Unconscious Date of admission: 10/23/16 22:32 Primary care physician: Darby Pete Consults: 10/24/16 01:23 Consult to Nurse Navigator [CONS] Routine Comment: 10/24/16 11:35 Consult to Occupational Therapy [CONS] Routine Comment: Evaluate, develop and implement POC Consult to Physical Therapy [CONS] Routine Comment: Evaluate, develop and implement POC Discharging clinician: Nishant Cortez Anticipated date of discharge: 10/25/16 - Patient Status Disposition: Home, Self-Care Condition: Fair Functional capacity at discharge: independent ambulation Overall status at discharge: patient is back to baseline - Discharge Instructions Instructions: Ciprofloxacin (By mouth), Mupirocin (On the skin), Laxative, Stimulant (By mouth), Metronidazole (By mouth), Laxative, Stool Softeners (By mouth), Ondansetron (By mouth), Chronic Hypertension (DC) Follow Up With: Darby Pete, LEARNING OPERATIONS SPECIALIST [Primary Care Provider] - - Diet and Activity Activity: increase activity as tolerated Diet: advance to your usual diet Hospital course: Ms. Lee is a 81 year old female with a past medical history of history, aortic stenosis with porcine valve repair, and atrial fibrillation on Coumadin. She was admitted to [facility] and found to have colitis of the descending colon. She was treated with IV antibiotics. Ciprofloxacin and Flagyl. Her symptoms improved and she is now at her baseline. She is pain- free and having formed bowel movements. She also had some impetigo of the right cheek this began after a skin biopsy. This was treated with Bactroban and looks quite good today. Her vital signs are within normal limits. No major abnormalities were noted on her labs. Does have some mild anemia. However this is likely dilutional as she did get IV fluids. There is no signs or symptoms of bleeding at this time. Today the patient is ambulating on her own. She is tolerating a regular diet and having normal bowel bladder function. We will discharge her home to complete a ten-day course of Cipro and Flagyl. We will also have her follow-up with her PCP to monitor her INR. The above plan was discussed with the patient and she voiced back understanding and agreement. - Time Spent with Patient Total time spent providing and/or coordinating discharge services: - Constitutional Vitals: Temp Pulse Resp BP Pulse Ox 97.8 F 115 18 134/84 96 10/25/16 12:06 10/25/16 12:06 10/25/16 12:06 10/25/16 12:06 10/25/16 12:06 General appearance: Present: A&O X 3, answers questions appropriately - Head Head exam: Present: atraumatic, normocephalic - Eye Eye exam: Present: PERRL, conjuntiva pink, sclera anicteric Pupils: Present: PERRL - Neck Neck exam general surgery: Present: supple, trachea midline. Absent: lymphadenopathy - Respiratory Respiratory exam: Present: CTAB. Absent: accessory muscle use, rales, rhonchi, wheezes - Cardiovascular Cardiovascular exam: Present: RRR, +S1, +S2. Absent: diastolic murmur, gallop, rubs, systolic murmur - GI/Abdominal GI/Abdominal exam: Present: normal bowel sounds, soft, no peritoneal signs. Absent: distended, tenderness - Extremities Exam Extremities exam: Present: warm, radial pulses palpable and symetrical. Absent : calf tenderness, cyanotic, pedal edema - Skin Skin exam: Present: dry, intact <Kang Moon - Last Filed: 10/25/16 17:41> Date of Encounter: 10/25/16 Date of admission: 10/23/16 22:32 Primary care physician: Darby Pete Consults: 10/24/16 01:23 Consult to Nurse Navigator [CONS] Routine Comment: 10/24/16 11:35 Consult to Occupational Therapy [CONS] Routine Comment: Evaluate, develop and implement POC Consult to Physical Therapy [CONS] Routine Comment: Evaluate, develop and implement POC Hospital course: Ms. Lee is a 81 year old female - Time Spent with Patient Total time spent providing and/or coordinating discharge services: - Constitutional Vitals: Temp Pulse Resp BP Pulse Ox 97.8 F 115 18 134/84 96 10/25/16 12:06 10/25/16 12:06 10/25/16 15:30 10/25/16 12:06 10/25/16 15:30 - Attending Attestation I examined this patient and my medical decision-making was reviewed with the IT HELP DESK TECHNICIAN/PA/Advanced Practice Nurse/Resident Physician. I agree with the documented findings, disposition and treatment plan as described except to the extent set forth below. D/C home today, GI follow u[ as outpatient. D/W patient.
[2016-10-25] MEDS ORDERED: *HR* Warfarin 4 MG TABLET PO ONE (18:00)
== END 2016-10-25 16:39 | disposition home or self-care (01) ==
LOC: 2ANU 18:42 → EMEROO 18:42 → 2ANU 23:32
PROVIDERS: ADMIT Internal Medicine; ATTEND Internal Medicine

== ENCOUNTER 2017-09-29 12:46 | Observation (INO) ==
[2017-09-29] MEDS ORDERED: 0.9 % Sodium Chloride 500 ML IVC ONE (13:04)
[2017-09-29] MEDS ORDERED: 0.9 % Sodium Chloride 1,000 ML IVC ONE (13:05)
[2017-09-29 13:17] LABS: Basophils % 0.5 %; Eosinophils % 0.2 %; Hematocrit 37.7 % (35.3-44.9); Hemoglobin 12.2 g/dL (11.5-15.4); Immature Granulocytes % 0.3 % (0-4); Lymphocytes # 0.8 K/mcL (0.6-4.6); Lymphocytes % 11.9 %; Mean Corpuscular HGB Conc 32.4 g/dL (31.6-35.5); Mean Corpuscular Hemoglobin 29.8 pg (28.0-33.3); Mean Platelet Volume 12.4 fL (9.4-12.4); Monocytes # 0.7 K/mcL (0.0-1.3); Monocytes % 11.1 %; Neutrophils # 4.9 K/mcL (1.6-8.9); Platelet Count 125 K/mcL (140-400); Red Cell Distribution Width 14.4 % (11.5-14.5)
--- NOTE | 2017-09-29 13:18 | Emergency Department Note ---
Disposition Clinical Impression: Chronic atrial fibrillation with rapid ventricular response, Weakness Disposition: Admitted As Inpatient Condition: Fair Time of Disposition: 14:34 General Adult HPI - General Chief complaint: ED Arrhythmia/Palpitations Stated complaint: "rapid HR" Time Seen by Provider: 09/29/17 13:03 Source: patient Limitations: no limitations Nursing Notes Reviewed: Yes Vital Signs Reviewed: Yes - History of Present Illness HPI Narrative: Patient is an 82-year-old female with a past medical history of atrial fibrillation currently on Coumadin, mitral valve replacement, hypertension, hypothyroid, and COPD presenting to the emergency department for the complaint of feeling weak. The patient was being seen by her primary care provider today for what she thought was bronchitis and her heart rate was checked and was shown to be in the 170s range. She is transferred here by EMS. The patient states that over the past few months she has felt that her heart rate has been higher than normal and she has felt weak and like she has had low energy and attributes it to her heart rate. At this time, resting in bed the patient states that she has no symptoms. She states that she feels fine. She denies any lightheadedness, chest pain, shortness of breath, nausea, diaphoresis, abdominal pain or any other concerning symptoms at this time. Over the past couple of days patient states that she has a productive cough with yellow sputum which will be her third time getting bronchitis this winter season. She just recently returned from [place]. History of blood clot in the past. Pain Scale: 0 - Related Data Home Medications Medication Instructions Recorded Confirmed Potassium Chloride 20 meq PO BID 02/02/16 09/29/17 Esomeprazole Magnesium [Nexium] 40 mg PO DAILY 08/12/16 09/29/17 Multivitamin/Iron/Folic Acid 1 each PO DAILY 08/12/16 09/29/17 [Centrum Complete Multivit Tab] Aspirin Enteric Coated [Aspirin EC] 81 mg PO DAILY 10/23/16 09/29/17 Levothyroxine Sodium 100 mcg PO QAM 10/23/16 09/29/17 Metoprolol [Lopressor] 100 mg PO BID 10/23/16 09/29/17 Warfarin [Coumadin] 4 mg PO DAILY 10/23/16 09/29/17 Diltiazem HCl [Diltiazem ER] 180 mg PO DAILY 03/20/18 03/20/18 Umeclidinium Brm/Vilanterol Tr 1 puff IH DAILY 09/29/17 09/29/17 [Anoro Ellipta 62.5-25 Mcg INH] Allergies Allergy/AdvReac Type Severity Reaction Status Date / Time niacin Allergy See Verified 09/29/17 12:57 [From [facility] Comments Extended-Release] Review of Systems: As Per HPI Constitutional: Reports: weakness. Denies: fever, chills Cardiovascular: Denies: chest pain, palpitations, dyspnea on exertion Respiratory: Reports: cough. Denies: dyspnea, wheezes Gastrointestinal: Reports: nausea. Denies: abdominal pain, vomiting Genitourinary: Denies: urgency, dysuria Musculoskeletal: Denies: back pain Past Medical History - Past Medical History Attestation: Yes The following information was validated with the patient. Medical history: Reports: arthritis, asthma, atrial fibrillation, cardiomyopathy , CHF, COPD, coronary artery disease, GERD, hyperlipidemia, hypertension, osteoporosis, renal disease, thyroid disease, valvular heart disease, other Surgical history: Reports: breast surgery, cholecystectomy, hysterectomy, orthopedic, other, other Psychiatric history: Reports: anxiety, depression - Social History Smoking Status: Never smoker Smokeless Tobacco Status: No Alcohol use: Reports: occasionally Drug use: Reports: none Physical Exam CONSTITUTIONAL: Well-appearing; well-nourished; A&O X 3, in no apparent distress. Patient rhythm appears to be a. fib and she is tachycardic at 120s. Other vitals are stable. HEAD: Normocephalic; atraumatic EYES: PERRL, no scleral icterus NOSE: The nose is normal in appearance without rhinorrhea NECK: No JVD or distended neck veins RESP: Normal chest excursion with respiration; breath sounds clear and equal bilaterally; no wheezes, rhonchi, or rales CARD: Tachycardic in a. fib, without murmurs, rub or gallop ABD: Non-distended; non-tender, soft, without rigidity, rebound or guarding,no pulsatile mass CHEST: No pain with palpation SKIN: Normal for age and race; warm and dry without diaphoresis ; no apparent lesions EXTREMITIES: Pulses are 2 plus and equal times 4 extremities, no peripheral edema or calf muscle pain - General Limitations: no limitations General appearance: alert, in no apparent distress Course Course Narrative: Patient is complaining of chronic weakness and sent here by her primary care provider for her elevated heart rate and atrial fibrillation. Patient also just returned from [place] by airplane. Plan at this time is to hydrate the fluid due to her recent cough and congestion suspect possible hydration as a cause of her elevated heart rate. We will reassess the patient after IV hydration and if her heart rate remains elevated we will initiate Cardizem. In the meantime we will perform a cardiac evaluation of the patient including checking her thyroid as well as a d-dimer. Patient agrees with this plan. - Reevaluation(s) Reevaluation #1: Bolus of cardizem administered. Patient heart is currently in the 90's. Discussed with the patient that her lab results are returned and are essentially negative at this time. Discussed chest x-ray was negative. Discussed with the patient the plan to admit her for her atrial fibrillation to be further evaluated and treated inpatient for rate control. Time: 14:24 Reevaluation #2: Discussed the patient's case with the hospitalist on-call Dr. Carvalho, he agrees to accept the patient and requests' a cardizem drip. Time: 14:38 Vital Signs Temperature 97.5 F L 09/29/17 12:53 Pulse Rate 175 09/29/17 12:53 Respiratory Rate 18 09/29/17 12:53 Blood Pressure 98/67 09/29/17 12:53 O2 Sat by Pulse Oximetry 98 09/29/17 12:53 Temperature 98.2 F 09/30/17 21:37 Pulse Rate 127 09/30/17 21:37 Respiratory Rate 18 09/30/17 21:37 Blood Pressure 118/68 09/30/17 21:37 O2 Sat by Pulse Oximetry 96 09/30/17 21:37 Oxygen Delivery Oxygen Delivery Room Air Medical Decision Making - Medical Records Medical records reviewed: Yes I reviewed the patient's medical records. - Lab Data Lab results reviewed: Yes I reviewed the patient's lab results. Result diagrams: 09/30/17 06:31 09/30/17 06:31 Lab Results 09/29/17 09/29/17 09/29/17 Range/Units 13:08 13:08 13:08 WBC 6.4 (4.3-11.1) K/mcL RBC 4.10 (3.82-4.97) M/mcL Hgb 12.2 (11.5-15.4) g/dL Hct 37.7 (35.3-44.9) % MCV 92.0 (83.0-100.0) fL MCH 29.8 (28.0-33.3) pg MCHC 32.4 (31.6-35.5) g/dL RDW 14.4 (11.5-14.5) % Plt Count 125 L (140-400) K/mcL MPV 12.4 (9.4-12.4) fL Immature Gran % 0.3 (0-4) % Seg Neutrophils % 76.0 % Lymphocytes % 11.9 % Monocytes % 11.1 % Eosinophils % 0.2 % Basophils % 0.5 % Neutrophils # 4.9 (1.6-8.9) K/mcL Lymphocytes # 0.8 (0.6-4.6) K/mcL Monocytes # 0.7 (0.0-1.3) K/mcL Eosinophils # 0.0 (0.0-0.6) K/mcL Basophils # 0.0 (0.0-0.2) K/mcL PT (9.4-12.1) Seconds INR APTT (26.0-36.0) Seconds D-Dimer (0-500) ng/mLFEU Sodium 135 L (136-145) mEq/L Potassium 3.8 (3.5-5.1) mEq/L Chloride 101 (98-107) mEq/L Carbon Dioxide 19 L (23-29) mEq/L BUN 16 (8-23) mg/dL Creatinine 1.00 (0.60-1.20) mg/dL Est GFR ( Amer) > 60 (> 60) Est GFR (Non-Af Amer) 53 L (> 60) BUN/Creatinine Ratio 16 (6-26) Glucose 194 H (70-105) mg/dL Calculated Osmolality 286 (280-300) Calcium 9.0 (8.6-10.3) mg/dL Total Bilirubin 0.7 (0.3-1.0) mg/dL Direct Bilirubin 0.2 (0.0-0.2) mg/dL Indirect Bilirubin 0.5 (0.0-1.2) mg/dL AST 52 H (13-39) Units/L ALT 45 (7-52) Units/L Alkaline Phosphatase 93 (34-104) Units/L Troponin I < 0.03 (< 0.04) ng/mL B-Natriuretic Peptide 356 H (Less than 100) pg/mL Serum Total Protein 6.9 (6.4-8.9) g/dL Albumin 4.1 (3.5-5.7) g/dL Globulin 2.8 (2.4-3.5) g/dL Albumin/Globulin Ratio 1.5 (1.1-2.2) Lipase 36 (11-82) Units/L TSH 0.590 (0.340-5.600) mcIU/mL Urine Color (Yellow) Urine Clarity (Clear) Urine pH (5.0-8.0) pH Units Ur Specific [place] (1.010-1.025) Urine Protein (Neg-Trace) mg/dL Urine Glucose (UA) (Normal) mg/dL Urine Ketones (Negative) mg/dL Urine Blood (Negative) Urine Nitrite (Negative) Urine Bilirubin (Negative) Urine Urobilinogen (Normal) mg/dL Ur Leukocyte Esterase (Negative) Urine Microscopic RBC (0-3) per hpf Urine Microscopic WBC (0-3) per hpf Ur Squamous Epith Cells (None-Few) per lpf Urine Bacteria (None-Few) per hpf Hyaline Casts (None-Few) per lpf Ur Culture Indicated? (NO) 09/29/17 09/29/17 Range/Units 13:09 13:50 WBC (4.3-11.1) K/mcL RBC (3.82-4.97) M/mcL Hgb (11.5-15.4) g/dL Hct (35.3-44.9) % MCV (83.0-100.0) fL MCH (28.0-33.3) pg MCHC (31.6-35.5) g/dL RDW (11.5-14.5) % Plt Count (140-400) K/mcL MPV (9.4-12.4) fL Immature Gran % (0-4) % Seg Neutrophils % % Lymphocytes % % Monocytes % % Eosinophils % % Basophils % % Neutrophils # (1.6-8.9) K/mcL Lymphocytes # (0.6-4.6) K/mcL Monocytes # (0.0-1.3) K/mcL Eosinophils # (0.0-0.6) K/mcL Basophils # (0.0-0.2) K/mcL PT 18.4 H (9.4-12.1) Seconds INR 1.7 APTT 32.1 (26.0-36.0) Seconds D-Dimer 549 H (0-500) ng/mLFEU Sodium (136-145) mEq/L Potassium (3.5-5.1) mEq/L Chloride (98-107) mEq/L Carbon Dioxide (23-29) mEq/L BUN (8-23) mg/dL Creatinine (0.60-1.20) mg/dL Est GFR ( Amer) (> 60) Est GFR (Non-Af Amer) (> 60) BUN/Creatinine Ratio (6-26) Glucose (70-105) mg/dL Calculated Osmolality (280-300) Calcium (8.6-10.3) mg/dL Total Bilirubin (0.3-1.0) mg/dL Direct Bilirubin (0.0-0.2) mg/dL Indirect Bilirubin (0.0-1.2) mg/dL AST (13-39) Units/L ALT (7-52) Units/L Alkaline Phosphatase (34-104) Units/L Troponin I (< 0.04) ng/mL B-Natriuretic Peptide (Less than 100) pg/mL Serum Total Protein (6.4-8.9) g/dL Albumin (3.5-5.7) g/dL Globulin (2.4-3.5) g/dL Albumin/Globulin Ratio (1.1-2.2) Lipase (11-82) Units/L TSH (0.340-5.600) mcIU/mL Urine Color Yellow (Yellow) Urine Clarity Cloudy A (Clear) Urine pH 6.0 (5.0-8.0) pH Units Ur Specific [place] 1.017 (1.010-1.025) Urine Protein Negative (Neg-Trace) mg/dL Urine Glucose (UA) Normal (Normal) mg/dL Urine Ketones Negative (Negative) mg/dL Urine Blood Negative (Negative) Urine Nitrite Negative (Negative) Urine Bilirubin Negative (Negative) Urine Urobilinogen Normal (Normal) mg/dL Ur Leukocyte Esterase Trace H (Negative) Urine Microscopic RBC 3-5 H (0-3) per hpf Urine Microscopic WBC 0-3 (0-3) per hpf Ur Squamous Epith Cells Many H (None-Few) per lpf Urine Bacteria None Seen (None-Few) per hpf Hyaline Casts None Seen (None-Few) per lpf Ur Culture Indicated? NO. (NO) - Radiology Data Radiology results reviewed: Yes I reviewed the patient's radiology results. Chest X-Ray 09/29/17 12:58 IMPRESSION: Cardiomegaly, otherwise, no acute abnormality seen in the chest D/ / Reggie Wright MD / Reggie Wright MD Interpreting Provider: Reggie Wright MD - EKG Data EKG #1 EKG attestation: Yes I reviewed and interpreted this EKG. EKG results narrative: Patient's EKG done at 12:59 shows atrial fibrillation with RVR. QRS is 92, QT is 268 and QTc is 357 these are within normal limits. No signs of ST elevation , ST depression, or Q waves present at this time. This is changed when compared to EKG done on November 242016. EKG was atrial fibrillation at a rate of 82 bpm.
--- NOTE | 2017-09-29 13:25 | Emergency Department Note ---
START Narrative - START START: I examined this patient and my medical decision-making was reviewed with the Resident Physician. I agree with the documented findings, disposition and treatment plan as described except to the extent set forth below. 82 year old female presents to the ED with complaints of rapid HR. She has a history of atrial fibrillatino and take dilitazem for therapy once a day and has been compliant with medications. Patient has a history of coughing for the past two days with green/yellow sputum and thnks she may have bronchitis. Maryam states that typically she has to be admitted to the hospital for contorl of her atrial fibrillation, PATinet upon triage arrival was 175 HR and slightly hypotensive to 98/60s. Althogh in the room she has improced vitals with a HR Of 120 and BP of 137/80. We will continue cardiopulmonary workup and then admit to medicine after evlauting infectious componnet of the elevated HR.
[2017-09-29 13:31] LABS: INR 1.7; Prothrombin Time 18.4 Seconds (9.4-12.1)
[2017-09-29 13:34] LABS: Activated Partial Thrombo Time 32.1 Seconds (26.0-36.0)
[2017-09-29 13:45] LABS: Troponin I < 0.03 ng/mL (< 0.04)
[2017-09-29 14:04] LABS: Bilirubin,Urine Negative (Negative); Blood,Urine Negative (Negative); Clarity,Urine Cloudy (Clear); Color,Urine Yellow (Yellow); Glucose,Urine (UA) Normal (Normal); Ketones,Urine Negative (Negative); Leukocyte Esterase,Urine Trace (Negative); Nitrite,Urine Negative (Negative); Protein,Urine Negative (Neg-Trace); Specific Gravity,Urine 1.017 (1.010-1.025); Urobilinogen,Urine Normal (Normal)
[2017-09-29 14:06] LABS: Bacteria,Urine None Seen per hpf (None-Few); Hyaline Casts,Urine None Seen per lpf (None-Few); Squamous Epithelial Cell,Urine Many per lpf (None-Few); WBC,Urine 0-3 per hpf (0-3)
--- NOTE | 2017-09-29 15:13 | Internal Med History&Physical ---
Date of Encounter: 09/29/17 Time of Encounter: 15:00 Assessment and Plan (1) Chronic atrial fibrillation with rapid ventricular response Current visit: Yes Status: Acute Patient presented with rapid ventricular response. Improved after she was given IV Cardizem in the ER. Patient is on Cardizem 180 and metoprolol 100 twice daily at home. Consider increasing Cardizem to 240 mg. Monitor with telemetry. We will place on IV Cardizem drip if heart rate remains uncontrolled. On anticoagulation with Coumadin. (2) COPD (chronic obstructive pulmonary disease) Current visit: Yes Status: Chronic COPD with chronic bronchitis. Patient having yellow colored sputum with specks of blood. She was recently treated with antibiotics. Denies any fever or chills. We will hold off on further antibiotics for now. Will send sputum for culture and start antibiotics if needed based on culture results. Continue bronchodilators. Qualifiers: COPD type: chronic bronchitis Chronic bronchitis type: simple Qualified Code(s): J41.0 - Simple chronic bronchitis (3) Hypothyroidism Current visit: Yes Status: Chronic On levothyroxine. Will check TSH level. Qualifiers: Hypothyroidism type: unspecified Qualified Code(s): E03.9 - Hypothyroidism , unspecified (4) DVT prophylaxis Current visit: Yes Status: Acute On anticoagulation with Coumadin. Will continue. INR 1.7. Internal Medicine - H&P: HPI Chief complaint: Cough, sputum production Admitted From: Emergency Dept Plans for Post Hospital Care: Home History of present illness: Ms. Lee is a 82 year old female patient with history of COPD, asthma, atrial fibrillation, coronary artery disease, hypertension who presented to the ER with complaints of cough and shortness of breath along with sputum production. She had been to her primary care provider's office with these complaints and was found to be tachycardic and so was sent to the ER. On arrival to the ER, her heart rate was in the 170s. Patient has a history of poorly-controlled atrial fibrillation and has had multiple cardioversions in the past. She is currently on Cardizem 180 mg daily. She denies any fever or chills or night sweats. No nausea or vomiting or diarrhea. She has been having yellow-colored sputum since yesterday. She has had recurrent bouts of Bronchitis since June and has been on multiple courses of antibiotics. Most recently she was on Z-Anurag for 6 days earlier this month. Her symptoms had completely subsided after she uses Z-Anurag and prednisone till then began yesterday. She is on Anoro Ellipta but does not use any rescue inhaler. In the ER, she was given IV fluids and Cardizem IV with improvement in her heart rate. She denies any chest pain. Past Med Surg Social Fam HX - Past Medical History Attestation: Yes The following information was validated with the patient. Source: patient Medical history: arthritis, asthma, atrial fibrillation, cardiomyopathy, CHF, COPD, coronary artery disease, GERD, hyperlipidemia, hypertension, osteoporosis , renal disease, thyroid disease, valvular heart disease, other Psychiatric history: anxiety, depression - Past Surgical History Surgical History: breast surgery, cholecystectomy, hysterectomy, orthopedic, other, other - Social History Smoking Status: Never smoker Smokeless Tobacco Status: No Alcohol use: occasionally Drug use: none - Family History Mother Living Status: Hx Family Cardiac Disorders: Yes Hx Family Respiratory Disorders: No Hx Family Cancer: Yes (Breast) Hx Family GI Disorders: No Hx Family Endocrine Disorder: No Hx Family Neuromuscular Disorders: No Hx Family Neurologic Disorders: No Hx Family HEENT Disorders: No Hx Family Autoimmune Disorders: No Father Living Status: Hx Family Cardiac Disorders: Yes (self) Hx Family Respiratory Disorders: Yes (self) Hx Family Cancer: Yes (mother,brother,aunt) Hx Family GI Disorders: No Hx Family Endocrine Disorder: No Hx Family Neuromuscular Disorders: No Hx Family Neurologic Disorders: Yes (grandparents) Hx Family HEENT Disorders: No Hx Family Autoimmune Disorders: No Internal Medicine - H&P: Meds Potassium Chloride 20 meq PO BID 02/02/16 [History] Esomeprazole Magnesium [Nexium] 40 mg PO DAILY 08/12/16 [History] Multivitamin/Iron/Folic Acid [Centrum Complete Multivit Tab] 1 each PO DAILY [History] Aspirin Enteric Coated [Aspirin EC] 81 mg PO DAILY 10/23/16 [History] Levothyroxine Sodium 100 mcg PO QAM 10/23/16 [History] Metoprolol [Lopressor] 100 mg PO BID 10/23/16 [History] Warfarin [Coumadin] 4 mg PO DAILY 10/23/16 [History] Diltiazem HCl [Diltiazem ER] 180 mg PO DAILY 09/29/17 [History] Umeclidinium Brm/Vilanterol Tr [Anoro Ellipta 62.5-25 Mcg INH] 1 puff IH DAILY 09/29/17 [History] 3 Allergy/AdvReac Type Severity Reaction Status Date / Time niacin Allergy See Verified 09/29/17 12:57 [From [facility] Comments Extended-Release] All Systems PM: A 10-system review of systems was performed and is negative for pertinent findings except as documented above in the HPI. - Constitutional Constitutional: no chills, no fever(s), no night sweats - EENT Eyes: no change in vision, no discharge, no pain, no photophobia Ears: no ear discharge, no ear pain, no tinnitus Nose, mouth and throat: no dysphagia, no nasal discharge, no neck pain, no sore throat - Cardiovascular Cardiovascular ROS IM: no chest pain, no diaphoresis, no dyspnea, no lightheadedness, no palpitations, no syncope - Respiratory Respiratory: cough, wheezing, excessive phlegm production, no dyspnea - Gastrointestinal Gastrointestinal: no abdominal pain, no diarrhea, no hematemesis, no hematochezia, no melena, no nausea, no vomiting - Genitourinary Genitourinary: no change in urinary stream, no dysuria, no flank pain, no hematuria - Musculoskeletal Musculoskeletal ROS IM: no numbness, no tingling - Integumentary Integumentary IM: no rash, no unusual bruising - Neurological Neurological ROS: no confusion, no convulsions, no focal weakness, no numbness, no tingling, no tremor(s) - Hematologic/Lymphatic Hematologic/Lymphatic: no easy bruising - Constitutional Vitals: Temp Pulse Resp BP Pulse Ox 97.5 F L 75 18 95/51 100 09/29/17 12:53 09/29/17 14:35 09/29/17 14:35 09/29/17 14:35 09/29/17 14:35 General appearance: Present: cooperative, mild distress, A&O X 3, pleasant, answers questions appropriately - Respiratory Respiratory exam: Present: CTAB. Absent: accessory muscle use, rales, rhonchi, wheezes - Cardiovascular Cardiovascular exam: Present: irregular rhythm, +S1, +S2. Absent: diastolic murmur, gallop, rubs, systolic murmur - GI/Abdominal GI/Abdominal exam: Present: normal bowel sounds, soft, no peritoneal signs. Absent: distended, tenderness - Extremities Exam Extremities exam: Present: warm, radial pulses palpable and symmetrical. Absent : calf tenderness, cyanotic, pedal edema - Neurological Exam Neurological exam: Present: CN II-XII intact, oriented X3, no focal deficits. Absent: facial droop, speech deficit - Skin Skin exam: Present: dry, intact Internal Med - H&P Results - Labs CBC & Chem 7: 09/29/17 13:08 Labs: Short CBC 09/29/17 Range/Units 13:08 WBC 6.4 (4.3-11.1) K/mcL Hgb 12.2 (11.5-15.4) g/dL Hct 37.7 (35.3-44.9) % Plt Count 125 L (140-400) K/mcL Neutrophils # 4.9 (1.6-8.9) K/mcL Cardiac Enzymes 09/29/17 Range/Units 13:08 Troponin I < 0.03 (< 0.04) ng/mL Urine 09/29/17 Range/Units 13:50 Urine Color Yellow (Yellow) Urine Clarity Cloudy A (Clear) Urine pH 6.0 (5.0-8.0) pH Units Ur Specific [place] 1.017 (1.010-1.025) Urine Protein Negative (Neg-Trace) mg/dL Urine Glucose (UA) Normal (Normal) mg/dL - Impressions ITS Impressions Chest X-Ray 09/29/17 12:58 IMPRESSION: Cardiomegaly, otherwise, no acute abnormality seen in the chest D/ / Reggie Wright MD / Reggie Wright MD Interpreting Provider: Reggie Wright MD
[2017-09-29 15:26] LABS: Alanine Aminotransferase 45 Units/L (7-52); Albumin 4.1 g/dL (3.5-5.7); Albumin/Globulin Ratio 1.5 (1.1-2.2); Alkaline Phosphatase 93 Units/L (34-104); Aspartate Amino Transferase 52 Units/L (13-39); BUN/Creatinine Ratio 16 (6-26); Bilirubin,Direct 0.2 mg/dL (0.0-0.2); Bilirubin,Indirect 0.5 mg/dL (0.0-1.2); Bilirubin,Total 0.7 mg/dL (0.3-1.0); Blood Urea Nitrogen 16 mg/dL (8-23); Carbon Dioxide 19 mEq/L (23-29); Chloride 101 mEq/L (98-107); Globulin 2.8 g/dL (2.4-3.5); Glucose 194 mg/dL (70-105); Lipase 36 Units/L (11-82); Osmolality,Calculated 286 (280-300); Potassium 3.8 mEq/L (3.5-5.1); Sodium 135 mEq/L (136-145); Total Protein 6.9 g/dL (6.4-8.9); eGFR For African Americans > 60 (> 60); eGFR For Non-African Americans 53 (> 60)
[2017-09-29] MEDS ORDERED: Naloxone 0.4 MG/ML INJ IVP PRN (15:28)
[2017-09-29] MEDS ORDERED: Acetaminophen 325 MG TABLET PO PRN (15:28)
[2017-09-29] MEDS ORDERED: Ipratropium/Albuterol Neb 3 ML IH PRN (15:29)
--- NOTE | 2017-09-29 19:02 | Electrocardiograph Report ---
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
[2017-09-29] MEDS: Metoprolol 100 MG TABLET PO SCH (19:38)
[2017-09-29] MEDS ORDERED: DILTIAZEM HCL 180 MG PO SCH (23:15)
[2017-09-29] MEDS: Diltiazem CD (24hr) 180 MG CAPSULE PO SCH (23:28)
[2017-09-30 06:46] LABS: Basophils % 0.5 %; Eosinophils % 0.8 %; Hematocrit 33.4 % (35.3-44.9); Hemoglobin 10.8 g/dL (11.5-15.4); Lymphocytes # 0.8 K/mcL (0.6-4.6); Lymphocytes % 20.2 %; Mean Corpuscular HGB Conc 32.3 g/dL (31.6-35.5); Mean Corpuscular Hemoglobin 30.1 pg (28.0-33.3); Mean Platelet Volume 11.1 fL (9.4-12.4); Monocytes # 0.5 K/mcL (0.0-1.3); Monocytes % 13.8 %; Neutrophils # 2.4 K/mcL (1.6-8.9); Platelet Count 131 K/mcL (140-400); Red Blood Count 3.59 M/mcL (3.82-4.97); Red Cell Distribution Width 14.4 % (11.5-14.5); Segmented Neutrophils % 64.7 %
[2017-09-30 07:04] LABS: BUN/Creatinine Ratio 16 (6-26); Blood Urea Nitrogen 12 mg/dL (8-23); Calcium 8.3 mg/dL (8.6-10.3); Carbon Dioxide 28 mEq/L (23-29); Chloride 106 mEq/L (98-107); Glucose 123 mg/dL (70-105); Osmolality,Calculated 289 (280-300); Potassium 3.6 mEq/L (3.5-5.1); Sodium 139 mEq/L (136-145); eGFR For African Americans > 60 (> 60); eGFR For Non-African Americans > 60 (> 60)
[2017-09-30] MEDS ORDERED: (Umeclidinium Brm/Vilanterol Tr [Anoro Ellipta 62.5-2 IH SCH (09:00)
[2017-09-30] MEDS ORDERED: *HR* Warfarin 4 MG TABLET PO SCH (09:00)
[2017-09-30] MEDS: Diltiazem CD (24hr) 180 MG CAPSULE PO SCH (09:12)
[2017-09-30] MEDS: Metoprolol 100 MG TABLET PO SCH ×2 (09:12→20:28)
[2017-09-30] MEDS: Multivit/Ca/Min/Fe/FA 1 TAB TABLET PO SCH (09:13)
[2017-09-30] MEDS: Aspirin Enteric Coated 81 MG Tablet PO SCH (09:13)
[2017-09-30 09:54] LABS: INR 1.7; Prothrombin Time 18.9 Seconds (9.4-12.1)
[2017-09-30] MEDS ORDERED: Tiotropium 18 MCG inhalation IH SCH (10:00)
[2017-09-30] MEDS: Ipratropium/Albuterol Neb 3 ML IH SCH ×4 (11:43→22:59)
[2017-09-30] MEDS: predniSONE 20 MG TABLET PO SCH (15:22)
--- NOTE | 2017-09-30 15:39 | Internal Med Progress Note ---
<Joseph Ambrosio - Last Filed: 09/30/17 17:42> Date of Encounter: 09/30/17 Time of Encounter: 15:33 - Assessment and plan (1) Paroxysmal atrial fibrillation with RVR Current Visit: Yes Status: Acute Assessment and plan: Heart rate is currently in the low 100s. It has been steady throughout the day. Patient was on Cardizem drip last night. We will keep Cardizem dose as her current dose and keep her metoprolol as her current dose as well. Monitor overnight. Patient does have ST depressions in the lateral leads that are new from her previous EKG. Reports some chest tightness yesterday but none today. Initial troponin was negative. Repeat EKG was performed after her heart rate was lowered this morning reveaked te sane ST depressions still remained, however , they were significantly reduced. Do not suspect pulmonary embolus at this time. An age adjusted d-dimer was within normal limits. Explanation for increased heart rate is probably due to COPD exacerbation. Will obtain echocardiogram tomorrow. Will keep nothing by mouth at midnight in case we decide on performing a stress test tomorrow. -Maintain current dose of metoprolol 100 BID and Cardizem 180 daily -Monitor heart rate -Perform echocardiogram tomorrow -Nothing by mouth at midnight (2) COPD exacerbation Current Visit: Yes Status: Acute Assessment and plan: Patient has had a worsening cough and slight increase in sputum. Not hypoxic here and on nasal cannula at times with oxygen saturation holding about 97%. Patient does have shortness of breath on ambulation, but she reports that this is nothing new. Wheezes on lung exam. Will start administration of 40 mg prednisone daily. Also giving patient DuoNeb's [id number]. If doing nebs continue to increased heart rate, we will switch to Xopenex. -[id number] doing nebs -Prednisone 40 mg daily -Await sputum cultures before initiation of antibiotics -Titrate oxygen to O2 saturation above 92%. (3) DVT prophylaxis Current Visit: Yes Status: Acute Assessment and plan: Currently on Coumadin (4) Congestive heart failure Current Visit: No Status: Acute Assessment and plan: Echocardiogram as above. Chest x-ray does not reveal any evidence of pleural effusions. Clinical exam does not reveal any lower extremity edema or rales on lung exam. Qualifiers: Qualified Code(s): I50.31 - Acute diastolic (congestive) heart failure (5) Hypothyroidism Current Visit: Yes Status: Chronic Assessment and plan: Continue home medications 100mcg daily at 6:30. TSH within normal limits. Qualifiers: Hypothyroidism type: unspecified Qualified Code(s): E03.9 - Hypothyroidism , unspecified - Subjective Interval history: 82-year-old female presenting to the emergency department yesterday to complain of cough, increased sputum production, palpitations. Was found to be in A. fib with RVR. Patient was started on diltiazem drip. Patient is on diltiazem at home as well as metoprolol. Antimicrobials were not started at that time as a sputum culture was obtained as patient was not hypoxic nor requiring BiPAP. Initial electrocardiogram reveals new ST segment depressions in the lateral leads. Patient was taken off diltiazem drip and heart rate was in the low 100s. Today, patient on an off nasal cannula oxygen saturation hovering around 97%. Heart rates been in the low 100s. Patient stating that she is not having any evidence of shortness of breath. States that her cough is improved with administration of Robitussin. Patient on when necessary DuoNeb's. - Constitutional Vitals: Temp Pulse Resp BP Pulse Ox 98.1 F 75 16 151/80 97 09/30/17 11:56 09/30/17 11:56 09/30/17 11:56 09/30/17 11:56 09/30/17 11:56 General appearance: Present: cooperative, mild distress, A&O X 3, pleasant, answers questions appropriately - Head Head exam: Present: atraumatic, normal inspection - Cardiovascular Cardiovascular exam: Present: irregular rhythm. Absent: JVD - GI/Abdominal GI/Abdominal exam: Present: diminished bowel sounds - Neurological Exam Neurological exam: Present: CN II-XII intact, normal gait, oriented X3 - Psychiatric Psychiatric exam: Present: normal affect, normal mood Internal Medicine: Result - Labs CBC & Chem 7: 09/30/17 06:31 09/30/17 06:31 Labs: Short CBC 09/30/17 Range/Units 06:31 WBC 3.8 L (4.3-11.1) K/mcL Hgb 10.8 L (11.5-15.4) g/dL Hct 33.4 L (35.3-44.9) % Plt Count 131 L (140-400) K/mcL Neutrophils # 2.4 (1.6-8.9) K/mcL BMP 09/30/17 06:31 Sodium 139 Potassium 3.6 Chloride 106 Carbon Dioxide 28 BUN 12 Creatinine 0.74 Glucose 123 H Calcium 8.3 L - ABG Interpretation ABG results: PT/INR, D-dimer PT 18.9 Seconds (9.4-12.1) H 09/30/17 09:28 D-Dimer 549 ng/mLFEU (0-500) H 09/29/17 13:09 Consult Discharge Plan - Plan Referrals: Dimitri James MD [Primary Care Provider] - <Bayron Roth - Last Filed: 09/30/17 18:56> Date of Encounter: 09/30/17 - Assessment and plan (1) Paroxysmal atrial fibrillation with RVR Current Visit: Yes Status: Acute (2) COPD exacerbation Current Visit: Yes Status: Acute (3) Hypothyroidism Current Visit: Yes Status: Chronic Qualifiers: Hypothyroidism type: acquired Qualified Code(s): E03.9 - Hypothyroidism, unspecified (4) Hypertension Current Visit: No Status: Chronic Qualifiers: Hypertension type: essential hypertension Qualified Code(s): I10 - Essential (primary) hypertension - Constitutional Vitals: Temp Pulse Resp BP Pulse Ox 98.8 F 90 18 142/82 97 09/30/17 16:10 09/30/17 16:10 09/30/17 16:36 09/30/17 16:36 09/30/17 16:36 Internal Medicine: Result - Labs CBC & Chem 7: 09/30/17 06:31 09/30/17 06:31 Labs: Short CBC 09/30/17 Range/Units 06:31 WBC 3.8 L (4.3-11.1) K/mcL Hgb 10.8 L (11.5-15.4) g/dL Hct 33.4 L (35.3-44.9) % Plt Count 131 L (140-400) K/mcL Neutrophils # 2.4 (1.6-8.9) K/mcL BMP 09/30/17 06:31 Sodium 139 Potassium 3.6 Chloride 106 Carbon Dioxide 28 BUN 12 Creatinine 0.74 Glucose 123 H Calcium 8.3 L - ABG Interpretation ABG results: PT/INR, D-dimer PT 18.9 Seconds (9.4-12.1) H 09/30/17 09:28 D-Dimer 549 ng/mLFEU (0-500) H 09/29/17 13:09 - Attending Attestation I examined this patient and my medical decision-making was reviewed with the Resident Physician on 09/30/17. I agree with the documented findings, disposition and treatment plan as described except to the extent set forth below. Ms Lee is currently in observation for rapid a fib and bronchitis. She remains moderate to high risk. Ms Lee heart rate is better controlled. No fever or chills. Had EKG changes with tachycardia. Still has some ST depression. Related some chest heaviness earlier but feels it was relieved with duoneb. Exam alert. Comfortable Mucus membranes dry Heart irreg and not tachy Lungs clear now Abd soft I/P 1. Parox a fib 2. Bronchitis EKG changes - may need stress. Keep NPO after midnight. Further diagnoses and plan as above.
[2017-09-30] MEDS ORDERED: Warfarin perPT PO PRN (18:00)
[2017-09-30] MEDS ORDERED: *HR* Warfarin 2.5 MG TABLET PO ONE (18:00)
[2017-10-01] MEDS: Ipratropium/Albuterol Neb 3 ML IH SCH ×4 (03:42→11:31)
[2017-10-01 05:31] LABS: INR 1.7; Prothrombin Time 18.9 Seconds (9.4-12.1)
--- NOTE | 2017-10-01 07:01 | Electrocardiograph Report ---
[address] [place] [address] Test Date: 2017-09-30 Pat Name: Jennifer Lee Department: 112 Room: 2A Gender: F Legal Office Administrator: : 1935 Requested By: Joseph Ambrosio Order Number: [id number] Reading MD: Melvin Montemayor MD Measurements Intervals [place] Rate: 92 P: [place]: 0 QRS: -2 QRSD: 94 T: 54 QT: 373 QTc: 423 Interpretive Statements ATRIAL FIBRILLATION Electronically Signed On 10-01-2017 6:59:52 EDT by Melvin Montemayor MD
[2017-10-01] MEDS: Aspirin Enteric Coated 81 MG Tablet PO SCH (10:17)
[2017-10-01] MEDS: Diltiazem CD (24hr) 180 MG CAPSULE PO SCH (10:17)
[2017-10-01] MEDS: Metoprolol 100 MG TABLET PO SCH (10:17)
[2017-10-01] MEDS: Multivit/Ca/Min/Fe/FA 1 TAB TABLET PO SCH (10:17)
[2017-10-01] MEDS: predniSONE 20 MG TABLET PO SCH (10:17)
[2017-10-01 11:44] VITALS: BP 134/60
--- NOTE | 2017-10-01 13:25 | Discharge Summary ---
<DailyJoseph - Last Filed: 10/01/17 15:20> Orders not resulted at time of discharge: Pending orders 09/29/17 18:45 Culture,Sputum with Gram Stain [] Stat 10/02/17 04:00 PT/INR [Prothrombin Time INR] [COAG] AM 0400 10/03/17 04:00 PT/INR [Prothrombin Time INR] [COAG] AM 0400 Date of Encounter: 10/01/17 Time of Encounter: 13:22 - Discharge Diagnosis (1) Paroxysmal atrial fibrillation with RVR Priority: Primary Status: Acute (2) COPD exacerbation Priority: Primary Status: Acute (3) ST segment changes on electrocardiogram Priority: Secondary Status: Acute (4) Hypothyroidism Priority: Secondary Status: Chronic Qualifiers: Hypothyroidism type: acquired Qualified Code(s): E03.9 - Hypothyroidism, unspecified Hospital course: Ms. Lee is a 82 year old female with known A. fib with RVR and COPD with asthma. Presents to the emergency department with weakness 2 days ago. Patient was at her primary care provider for the same symptoms, and he sent her to the emergency department. Patient was started on Cardizem drip and she was in a fibrillation with RVR. Patient had lateral ST depressions that were new from her previous EKG. After diltiazem drip administration, patient's heart rate returned to baseline. Patient had wheezes on lung exam, but chest x-ray only did not reveal any evidence of pneumonia. Patient was treated with around- the-clock DuoNeb administration as well as steroids. She stated that she was not taking her home inhaler. Patient's Cardizem was not adjusted while in the hospital as her heart rate stabilized. Troponin was negative 2. Echocardiogram was performed with an ejection fraction of 55-60%. Patient was sent home on steroids and a prescription for her inhaler. Patient will have follow-up with Dr. Callahan outpatient. I spoke with Aguilar Waterman, the nurse practitioner with cardiology about possibility of a stress test. She stated that it would be reasonable to follow up with his outpatient. I agree. Patient was discharged home. The plan was discussed with the patient and she agreed to follow up with cardiology as well as her primary care provider. Patient was hemodynamically stable at time of discharge. Chest X-Ray 09/29/17 12:58 IMPRESSION: Cardiomegaly, otherwise, no acute abnormality seen in the chest D/ / Reggie Wright MD / Reggie Wright MD Interpreting Provider: Reggie Wright MD Echocardiogram 09/30/17 10:07 Impressions: LVEF 55-60%. Normal LV chamber size, wall thickness and function. Indeterminate diastolic function. Atypical septal motion consistent with post-operative status. Normal right ventricular structure and function. 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 Mean gradient 7 mmHg (HR 90 bpm). Mild tricuspid regurgitation. Moderate pulmonary hypertension. Estimated RVSP is 49 mmHg. Left Ventricular Wall Motion: Rest Echo Findings All wall segments showed normal motion. Findings: Study Quality * Technically adequate exam. ECG Findings * Sinus rhythm with BBB. Left Ventricle * LVEF 55-60%. * Normal LV chamber size, wall thickness and function. * Indeterminate diastolic function. * Atypical septal motion consistent with post-operative status. Right Ventricle * Normal right ventricular structure and function. Left Atrium * Moderately dilated left atrium. Right Atrium * Moderately dilated right atrium. Interatrial Septum * Interatrial septum not well evaluated. Aortic Valve * Trileaflet aortic valve. * Mildly sclerotic aortic valve leaflets. * No aortic regurgitation. * No aortic stenosis. Mitral Valve * Bioprosthetic mitral valve noted. 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 Mean gradient 7 mmHg (HR 90 bpm). * No mitral regurgitation. Tricuspid Valve * Normal tricuspid valve structure. * Mild tricuspid regurgitation. * Moderate pulmonary hypertension. * Estimated RVSP is 49 mmHg. * Estimated RA pressure is 5 mmHg. Pulmonic Valve * Normal pulmonic valve structure and function. * No pulmonic regurgitation. Aorta * Normally sized aortic root. Pericardium * The pericardium appears normal. IVC * Normal IVC dimensions and inspiratory collapse. Pulmonary Artery * Normal visualized portions of the main pulmonary artery. Discharge discussed with: patient - Time Spent with Patient Total time spent providing and/or coordinating discharge services: - Discharge Medications Prescriptions: Albuterol Sulfate [Albuterol Inhaler] 2 puff IH Q4H 10 Days #1 inh predniSONE [PredniSONE] 40 mg PO DAILY #3 tablet Umeclidinium Brm/Vilanterol Tr [Anoro Ellipta 62.5-25 Mcg INH] 1 each IH DAILY # 1 blst.w.dev Home Medications: Potassium Chloride 20 meq PO BID 02/02/16 [History] Esomeprazole Magnesium [Nexium] 40 mg PO DAILY 08/12/16 [History] Multivitamin/Iron/Folic Acid [Centrum Complete Multivit Tab] 1 each PO DAILY [History] Aspirin Enteric Coated [Aspirin EC] 81 mg PO DAILY 10/23/16 [History] Levothyroxine Sodium 100 mcg PO QAM 10/23/16 [History] Metoprolol [Lopressor] 100 mg PO BID 10/23/16 [History] Warfarin [Coumadin] 4 mg PO DAILY 10/23/16 [History] Diltiazem HCl [Diltiazem ER] 180 mg PO DAILY 09/29/17 [History] Umeclidinium Brm/Vilanterol Tr [Anoro Ellipta 62.5-25 Mcg INH] 1 puff IH DAILY 09/29/17 [History] Albuterol Sulfate [Albuterol Inhaler] 2 puff IH Q4H 10 Days #1 inh 10/01/17 [Rx] Umeclidinium Brm/Vilanterol Tr [Anoro Ellipta 62.5-25 Mcg INH] 1 each IH DAILY # 1 blst.w.dev 10/01/17 [Rx] predniSONE [PredniSONE] 40 mg PO DAILY #3 tablet 10/01/17 [Rx] Allergies/Adverse Reactions: 3 Allergy/AdvReac Type Severity Reaction Status Date / Time niacin Allergy See Verified 09/29/17 12:57 [From [facility] Comments Extended-Release] Date of admission: 09/29/17 14:44 Primary care physician: Dimitri James MD Discharging clinician: Bayron Roth - Constitutional Vitals: Temp Pulse Resp BP Pulse Ox 97.6 F 93 16 134/60 100 10/01/17 11:39 10/01/17 11:39 10/01/17 11:39 10/01/17 11:39 10/01/17 11:39 General appearance: Present: cooperative, mild distress, A&O X 3, pleasant, answers questions appropriately - Head Head exam: Present: atraumatic, normal inspection - ENT ENT exam: Present: mucous membranes moist - Neck Neck exam general surgery: Present: full ROM, normal inspection - Respiratory Respiratory exam: Present: rhonchi, wheezes (Slightly improved from yesterday) - Cardiovascular Cardiovascular exam: Present: irregular rhythm. Absent: diastolic murmur, systolic murmur - GI/Abdominal GI/Abdominal exam: Present: soft. Absent: firm, guarding, rebound - Extremities Exam Extremities exam: Present: warm. Absent: pedal edema, tenderness - Neurological Exam Neurological exam: Present: CN II-XII intact, normal gait, oriented X3 - Skin Skin exam: Present: dry - Patient Status Disposition: Home, Self-Care Condition: Good Overall status at discharge: patient is progressing back to baseline - Discharge Instructions Instructions: Atrial Fibrillation (DC), Atrial Fibrillation (GEN), Chronic Obstructive Pulmonary Disease (DC), COPD Exacerbation, Systems Planner (GEN) Follow Up With: Romie Callahan DO [Partnered Physician] - Dimitri James MD [Primary Care Provider] - 10/07/17 9:00 am Additional Instructions: Take all medications as prescribed. Return to the emergency department if you develop any new symptoms or if your current symptoms worsen. Follow-up by setting up an appointment with your rock crusher, Dr. Callahan for follow-up within the next 2 weeks regarding the new changes on your electrocardiogram and your atrial fibrillation. Also, set up an appointment with your primary care provider within the next week for your COPD exacerbation. - Diet and Activity Activity: increase activity as tolerated Diet: advance to your usual diet <Bayron Roth - Last Filed: 10/01/17 16:47> - NOTES TO OUTPATIENT PROVIDER Notes to Outpatient Provider: Pt to follow with cardiology to determine if needs any further cardiac work up (i.e. stress test) Orders not resulted at time of discharge: Pending orders 09/29/17 18:45 Culture,Sputum with Gram Stain [RM] Stat Date of Encounter: 10/01/17 - Discharge Diagnosis (1) COPD exacerbation Status: Resolved (2) Paroxysmal atrial fibrillation with RVR Priority: Primary Status: Acute (3) Hypothyroidism Status: Chronic Qualifiers: Hypothyroidism type: acquired Qualified Code(s): E03.9 - Hypothyroidism, unspecified (4) Hypertension Priority: Secondary Status: Chronic Qualifiers: Hypertension type: essential hypertension Qualified Code(s): I10 - Essential (primary) hypertension Hospital course: Ms. Lee is a 82 year old female - Time Spent with Patient Total time spent providing and/or coordinating discharge services: 38min Date of admission: 09/29/17 14:44 Primary care physician: Dimitri James MD - Constitutional Vitals: Temp Pulse Resp BP Pulse Ox 97.6 F 93 16 134/60 100 10/01/17 11:39 10/01/17 11:39 10/01/17 11:39 10/01/17 11:39 10/01/17 11:39 - Attending Attestation I examined this patient and my medical decision-making was reviewed with the Resident Physician on 10/01/17. I agree with the documented findings, disposition and treatment plan as described except to the extent set forth below. Ms Lee has been in observation for rapid atrial fibrillation and EKG changes. She has been rate controlled overnight. She denies CP or worsening SOB and is afebrile currently. Troponin negative and echo with no new wall motion changes. She feels better and ready to go home. Exam alert Comfortable Mucus membranes dry Heart irreg and not tachy Lungs clear now Abd soft Plan D/C home today
[2017-10-01] MEDS ORDERED: *HR* Warfarin 4 MG TABLET PO ONE (18:00)
== END 2017-10-01 16:09 | disposition home or self-care (01) ==
LOC: 2ANU 12:46 → EMEROO 12:46 → SUATTDRO 14:44 → 2ANU 16:27
PROVIDERS: ADMIT Internal Medicine; ATTEND Internal Medicine